=== PATIENT | female | born 1985 | race Caucasian/White ===

== ENCOUNTER 2023-05-07 07:38 | Emergency (ER) | payer OTHER, SELFPAY ==
--- NOTE | 2023-05-07 07:41 | XRR_ITS ---
PROCEDURE INFORMATION: Exam: XR Right Wrist Exam date and time: 05/07/2023 7:48 AM Age: 37 years old Clinical indication: Injury or trauma; Fall; Blunt trauma (contusions or hematomas); Wrist; Right; Additional info: R wrist injury TECHNIQUE: Imaging protocol: Radiologic exam of the right wrist. 3image(s) are provided. Views: 3 or more views. COMPARISON: No relevant prior studies available of the wrist. Right hand report of 2019. FINDINGS: Bones/joints: Osseous alignment is maintained. No displaced fracture or dislocation is appreciated. There is some interventional related screw change at the 1st digit proximal phalanx. There is some slight radiocarpal level narrowing. Carpal alignment appears maintained. Soft tissues: No radiopaque foreign body or subcutaneous emphysema is appreciated. XR/XR wrist RT min 3V* [id number] IMPRESSION: Osseous alignment is maintained. No fracture or dislocation is appreciated.
[2023-05-07 07:44] VITALS: BP 133/59; PULSE 80; RESP 16; TEMP 37.6; O2SAT 100; BMI 22.7
--- NOTE | 2023-05-07 07:53 | W.ED.EXTPRO ---
HPI - Extremity Problem General: Chief complaint: Extremity Injury, Upper Stated complaint: Right wrist injury Time Seen by Provider: 05/07/23 07:42 Source: patient Mode of arrival: ambulatory Limitations: no limitations History of Present Illness: 37-year-old female presents to the ER today for right wrist pain. 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 Patient reports since that time she has had significant pain with movement and also numbness and tingling in that hand. Patient denies any prior injury to that finger or hand. She has not taken anything for pain at this time. Review of Systems General: Reports: 10 or more systems reviewed and unremarkable except in HPI and below Physical Exam Const: COMMON NORMALS: no acute distress, average body habitus, patient oriented x3, no limitations, healthy appearing, alert and well nourished HENMT: COMMON NORMALS: normocephalic and atraumatic HEAD & SCALP: normocephalic and atraumatic Resp: COMMON NORMALS: normal respiratory effort and No retractions Cardio: COMMON NORMALS: regular rate, regular rhythm and No murmurs present (Cardio) RATE: regular rate RHYTHM: regular rhythm Extremity: NARRATIVE EXTREMITY EXAM: No obvious swelling or bruising noted to the right wrist. Patient has tenderness over the ulnar side of the wrist/fifth metacarpal. Patient has limited range of motion secondary to pain. No deformities noted. Neuro: COMMON NORMALS: patient oriented x3 SENSORIUM/ORIENTATION: Yes alert Psych: COMMON NORMALS: mental status grossly normal, Normal thought process present and cooperative THOUGHT PROCESS: Normal thought process present Skin: COMMON NORMALS: no rashes or lesions noted and no wounds GENERAL SKIN EXAM: no rashes or lesions noted Course ED course: Patient presents for right wrist pain after an injury at work this morning. 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 We will get imaging at this time. No obvious deformity noted on exam. Limited range of motion secondary to pain. Patient has not taken anything at this time for pain. Vital Signs: Vital signs: Vital Signs Temperature 99.6 F 05/07/23 07:44 Pulse Rate 80 05/07/23 07:44 Respiratory Rate 16 05/07/23 07:44 Blood Pressure 133/59 05/07/23 07:44 Pulse Oximetry 100 05/07/23 07:44 MDM - Extremity (Nontraumatic) Medical Decision Making Imaging does not indicate any acute fractures. Likely patient has a wrist contusion from hitting it on the bed rail. Patient was placed in a Velcro wrist splint. Discussed that this likely will be sore for the next several days. Recommend anti-inflammatory daily for the next 7 to 10 days. Wear the brace when at work to protect it. Apply ice 20 minutes on and 20 minutes off 2-3 times a day. If pain persist after 7 to 10 days follow-up with work comp provider or PCP. Return to the ER with any new or worsening symptoms. Patient was released to full duty just recommended she wear the brace. Patient verbalized understanding and was in agreement with the treatment plan. XR interpretation done by ED provider, pending radiology final review ED provider radiology interpretation(s): Negative for acute fracture. Critical Care Time Critical Care Time: Critical Care Time: No Discharge Plan Discharge Patient Disposition: Home Clinical Impression: Contusion of right wrist, initial encounter Condition: Stable Discharge Orders: Discharge ED (Routine); Ordered 05/07/23 Ordered By: Jenifer Gayle Discharge Diet: Usual diet Discharge Activity: Increase activity as tolerated Patient Instructions: Wrist Injury (ED), Opioid Safety, Pain Management Activity Restrictions/Additional Instructions: Wear wrist brace as placed in ER. Take ibuprofen or aleve x 7 days for pain and inflammation. Apply ice to reduce swelling and help with pain. Okay to return to work but recommend wearing the wrist brace. F/U with PCP or work comp provider in 7-10 days. 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
== END 2023-05-07 08:27 | disposition home or self-care (01) ==
PROVIDERS: Emergency Provider Physician Assistant
DX: S60.211A Contusion of right wrist, initial encounter (principal); W22.09XA Striking against other stationary object, initial encounter; Y93.F2 Activity, caregiving, lifting; Y99.0 Civilian activity done for income or pay
CPT/HCPCS: 73110; 99283

== ENCOUNTER 2023-12-01 14:42 | Emergency (ER) | payer OTHER, SELFPAY ==
[2023-12-01 14:47] VITALS: BP 118/72; PULSE 91; RESP 15; TEMP 37.3; O2SAT 100
--- NOTE | 2023-12-01 15:11 | ED_ITS ---
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 She has no radicular discomforts. No chest pain or abdominal pain. Pain is worse with movement. MD elicited complaint: back pain Onset (ago): hour(s) Timing: constant Severity: moderate Similar Symptoms Previously: No Quality: sharp Location: thoracic spine Radiation: none Exacerbating factors: movement and lifting Relieving factors: none Context: while lifting Associated symptoms: Reports no associated symptoms; Deny abdominal pain, difficulty walking, dysuria, hematuria or syncope Treatments prior to arrival: NSAIDS Work related injury: Yes Review of Systems Card: Denies: chest pain, lightheadedness, syncope or pre-syncope Resp: Denies: dyspnea GI: Denies: abdominal pain : Denies: flank pain, dysuria or hematuria Musc: Reports: back pain; Denies: neck pain, extremity pain, extremity swelling, joint pain or joint swelling Neuro: Denies: numbness in extremities, weakness in extremities, sensory changes or difficulty walking Physical Exam Const: COMMON NORMALS: no acute distress, average body habitus, patient oriented x3, no limitations, healthy appearing, alert and well nourished Chest: COMMONS NORMALS: normal inspection of the chest and normal palpation of entire chest wall Resp: COMMON NORMALS: normal respiratory effort and clear to auscultation bilaterally AUSCULTATION: clear to auscultation bilaterally Cardio: COMMON NORMALS: regular rate and regular rhythm RATE: regular rate RHYTHM: regular rhythm GI: COMMON NORMALS: Normal to inspection, nondistended, normoactive bowel sounds present, Soft to palpation, non-tender, No hepatosplenomegaly present and no masses PALPATION: Yes Soft to palpation and Yes No hepatosplenomegaly present : COMMON NORMALS: Yes no CVA tenderness BLADDER/KIDNEY EXAM: Yes no CVA tenderness Back/Pelvis: COMMON NORMALS: no CVA tenderness and thoracic and lumbar spine normal to inspection THORACIC SPINE/UPPER BACK: Yes ROM limited, Yes pain with ROM, Yes thoracic spinal tenderness, Yes paraspinal muscle tenderness and No paraspinal muscle spasm LUMBAR SPINE/LOWER BACK: Yes normal to inspection, Yes lumbar ROM normal, No lumbar spinal tenderness, No paraspinal muscle tenderness and No paraspinal muscle spasm PELVIS: Yes buttocks normal and No sciatic notch tenderness SACROILIAC JOINTS: Yes SI joints normal SACRUM: no tenderness COCCYX: no tenderness Extremity: COMMON NORMALS: normal to inspection and full ROM GENERAL: Yes normal exam except as noted Neuro: COMMON NORMALS: patient oriented x3, moves all extremities, no focal motor deficits and no sensory deficits noted SENSORIUM/ORIENTATION: Yes alert Course Vital Signs: Vital signs: Vital Signs Temperature 99.2 F 12/01/23 14:47 Pulse Rate 91 12/01/23 14:47 Respiratory Rate 15 12/01/23 14:47 Blood Pressure 118/72 12/01/23 14:47 Pulse Oximetry 100 12/01/23 14:47 Oxygen Delivery Me thod Room Air 12/01/23 14:47 MDM - Back Pain/Injury Medical Decision Making XR negative. She feels better after IM Toradol and Dexamethasone. She will be allowed discharge. Will place her on steroids and muscle relaxers at home. She can continue OTC NSAIDs. Recommend follow-up as directed by her [employer] Medical Records I reviewed the patient's medical records. All radiology interpretation(s) finalized by discharge Discharge Plan Discharge Patient Disposition: Home Clinical Impression: Strain of thoracic back region Condition: Stable Prescriptions: New methocarbamol 500 mg tablet 1,000 mg PO Q8H Qty: 30 0RF methylprednisolone [Medrol ([place])] 4 mg tablets,dose pack See Rx Instructions .ROUTE .COMPLEX Qty: 21 0RF Rx Instructions: orally per package directions Discharge Orders: Discharge ED (Routine); Ordered 12/01/23 Ordered By: Carol Oakley Stand Alone Forms: Work/School Release Coding Level of Care Code ED Ladle Watcher for Collette Quick
--- NOTE | 2023-12-01 15:15 | XR_ITS ---
WS: [id number] Exam: XR thoracic spine 3V* [id number] Date/Time of Exam: 12/01/2023 3:15 PM Reason For Exam: injury Findings: In the AP projection, the thoracic spine is straight. In the lateral projection, the thoracic curve is well maintained. The intervertebral disc spaces are intact. No fractures or anomalies of the tho racic spine are noted. Slightly increased kyphosis. IMPRESSION: No acute fracture or malalignment..
[2023-12-01] MEDS: ketorolac 30 mg/mL INJ IM (15:20)
[2023-12-01] MEDS: dexamethasone 10 mg/mL INJ 6 MG IM (15:20)
[2023-12-01 16:49] VITALS: BP 125/71; PULSE 78; RESP 16; O2SAT 98
== END 2023-12-01 16:50 | disposition home or self-care (01) ==
PROVIDERS: Emergency Provider Physician Assistant
DX: S29.012A Strain of muscle and tendon of back wall of thorax, initial encounter (principal); X50.0XXA Overexertion from strenuous movement or load, initial encounter; Y93.F2 Activity, caregiving, lifting; Y92.129 Unspecified place in nursing home as the place of occurrence of the external cause; Y99.0 Civilian activity done for income or pay
CPT/HCPCS: 72072; 96372; 99284; J1100; J1885

== ENCOUNTER 2024-03-09 03:38 | Emergency (ER) | payer BC, MEDICAID, SELFPAY ==
[2024-03-09 03:49] VITALS: BP 123/60; PULSE 96; RESP 16; TEMP 36.9; O2SAT 100; BMI 23.5
[2024-03-09 04:00] VITALS: BP 100/68; PULSE 91; RESP 16; O2SAT 100
[2024-03-09] MEDS: ondansetron 4 MG Tablet PO (04:34)
[2024-03-09] MEDS: HYDROmorphone 1 mg/mL INJ 1 mL IM (04:35)
[2024-03-09] MEDS: mupirocin oint 22 gm 1 APPLIC TOPICAL (04:37)
--- NOTE | 2024-03-09 04:44 | PC.NURSE ---
Wrapped right hand with telfa and gauze after applying antibacterial ointment
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
== END 2024-03-09 04:45 | disposition home or self-care (01) ==
PROVIDERS: Emergency Provider Emergency Medicine
DX: T23.231A Burn of second degree of multiple right fingers (nail), not including thumb, initial encounter (principal); T23.151A Burn of first degree of right palm, initial encounter; X08.8XXA Exposure to other specified smoke, fire and flames, initial encounter
CPT/HCPCS: 96372; 99284; J1170; Q0162

== ENCOUNTER 2024-04-18 04:12 | Inpatient (IN) | payer BC, MEDICAID, SELFPAY ==
[2024-04-18] VITALS (138 sets, daily range): BP systolic 89–178; BP diastolic 42–104; PULSE 56–150; RESP 9–33; TEMP 37.1–37.2; O2SAT 92–100; BMI 23.5; BMI 23.4
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
[2024-04-18] MEDS: ketamine 100 mg/mL Inj 5 mL IM (04:38)
--- NOTE | 2024-04-18 04:42 | PC.NURSE ---
96 Hour Involuntary Hold Patient Rights have been read to the patient and a copy of the same has been given to her. Insole Cementer Wayne Gayle was present at bedside at the time of presentation of Rights.
--- NOTE | 2024-04-18 04:48 | PC.NURSE ---
Pt brought in by [facility]. Pt was combative with EMS during transport, and threw urine on EMS. Pt was picked up for SI, she admits to attempting to slit her wrist today. Upon arrival to the ED pt was uncooperative, spitting, throwing her drink, yelling, and threatening nursing staff. Pt was given ketamine and placed in 4 point restraints per instruction of Dr Way after attempts to keep patient calm and cooperative were exhausted at 0430. Dr Way did perform [id number] after patient was placed in restraints. Pt placed on bedside telemetry and has PSA within sight.
[2024-04-18 04:54] LABS: Basophils # 0.1 10^3/uL (0.0-0.1); Basophils % 0.7 %; Eosinophils # 0.1 10^3/uL (0.0-0.8); Eosinophils % 1.6 %; Hematocrit 26.1 % (36-47); Lymphocytes # 2.6 10^3/uL (0.8-4.8); Mean Corpuscular HGB Conc 24.5 g/dL (30-55); Mean Corpuscular Hemoglobin 15.6 pg (27-33); Mean Corpuscular Volume 63.5 fl (85-98); Mean Platelet Volume 8.7 fL (7.4-10.4); Monocytes # 0.7 10^3/uL (0.2-0.9); Monocytes % 8.6 %; Neutrophils % 56.9 %; Nucleated Red Blood Cells % 0 %; Platelet Count 416 10^3/cmm (157-399); Red Blood Count 4.11 10^6/uL (3.85-5.65); White Blood Count 8.26 10^3/uL (3.29-11.43)
--- NOTE | 2024-04-18 05:13 | PC.NURSE ---
[id number] was performed by Dr Way within 1 hour of placing patient in [id number].
[2024-04-18 05:14] LABS: Alanine Aminotransferase 9 U/L (0-33); Albumin Level 4.3 g/dL (3.5-5.2); Alkaline Phosphatase 66 U/L (35-105); Anion Gap 17.7 (5-19); Aspartate Amino Transferase 18 U/L (0-32); Blood Urea Nitrogen 5 mg/dL (6-20); Calcium 7.8 mg/dL (8.5-10.5); Carbon Dioxide 23 mmol/L (22-29); Chloride 108 mmol/L (98-107); Creatinine Clr Calc Pharmacy 130.0596; Globulin 2.7 g/dL (1.3-4.6); Glomerular Filtration Rate 112.5 mL/min (90-130); Glucose 141 mg/dL (65-115); Osmolality Calculated 300 mOsm/kg (285-295); Potassium 3.7 mmol/L (3.5-5.1); Salicylate 1.3 mg/dL (3-10); Sodium 145 mmol/L (136-145); Total Bilirubin 0.2 mg/dL (0.15-1.2)
[2024-04-18 05:25] LABS: Acetaminophen < 5.0 ug/mL (10-30)
[2024-04-18 05:26] LABS: Alcohol Level 302 mg/dL (0-10)
--- NOTE | 2024-04-18 05:33 | PC.NURSE ---
Patient requested to use restroom to urinate. Patient was ambulated to restroom with charge nurse Anitha and physical security manager. Patient then requested to not be placed back into restraints. Patient was helped back into regular bed, acting calm and cooperative at this time.
[2024-04-18 05:35] LABS: Charge for UA Resulting for Rev
[2024-04-18 05:38] LABS: HCG Qualitative Urine. Negative (Negative)
[2024-04-18 05:42] LABS: Bilirubin Urine Negative (Negative); Blood Urine Negative (Negative); Glucose Urine UA Negative (Normal); Ketones Urine Negative (Negative); Leukocyte Esterase Urine Negative (Negative); Nitrate Urine Negative (Negative); Protein Urine Negative (Negative); Specific Gravity, Urine 1.003 (1.005-1.030); Urine Appearance Clear (CLEAR); Urine Color Yellow (Yellow); Urobilinogen Urine 0.2 mg/dL (Negative); pH Urine 6.5 (5-7)
[2024-04-18 05:49] LABS: Amphetamines Screen Urine Negative (Negative); Barbiturates Screen Urine Negative (Negative); Benzodiazepines Screen Urine Negative (Negative); Cocaine Screen Urine Negative (Negative); Opiate Screen Urine Negative (Negative); PCP Screen Urine Negative (Negative); THC Screen Urine Negative (Negative)
[2024-04-18 06:05] LABS: Ferritin 8 ng/mL (15-150); Iron 7 ug/dL (37-145); Lactic Sepsis W/Reflex 2.9 mmol/L (0.5-2.2)
--- NOTE | 2024-04-18 06:12 | P.HP_ITS ---
Providers/Chief Complaint 2 Admitting Physician: Jose Samaniego MD Chief Complaint: MHE History of Present Illness Arlyn Waller is a 38 year old female with a past medical history of alcohol abuse, major depressive disorder, history of suicidal ideation with history of suicide attempt, status postcholecystectomy, status post tubal ligation, who presents to [facility] for suicidal ideation. According to ER provider, patient was brought in for suicidal ideation, she has a 96-hour hold, in the emergency room she was very volatile, hitting and kicking people, yelling profanities, was given ketamine and put in 4 point restraints. Hemoglobin is 6.4, blood alcohol level 302, hospitalist team was called for admission for acute anemia, hemodynamics are stable, no active bloody black stools. Currently patient is out of restraints, she is alert to person, to place, not to time, she follows all commands, but easily become agitated. During my evaluation she is yelling profanities, easily agitated, she had a cup of Coke beside her which she was sipping from, I was able to have her give it to me during my questioning, to keep her n.p.o. I asked her how much alcohol she drinks she tells me too much, but is not able to tell me an exact amount or her last drink. She denies any bloody or black stools. Denies a history of anemia. Denies a family history of anemia or bleeding disorders. She does report heavy menstrual periods, her last menstrual period was a few days ago, denies being . We had a detailed discussion of what acute anemia was, or concerns for a possible slow GI bleed, she starts crying, and wants her Coke back. We discussed that we have to keep her n.p.o., for possible scoping, she tells me that she is very thirsty, she denies any hematemesis or any coffee-ground emesis. She does feel nauseous at home, no bloody vomit Review of Systems 2 Const: Reports: fatigue and malaise GI: Reports: abdominal pain and heartburn; Denies: coffee ground emesis, hematochezia or melena Medications/Allergies Home Medications Medication Instructions Recorded Confirmed Last Taken Type methocarbamol 500 mg tablet 1,000 mg (2 x 500 mg) PO Q8H #30 12/01/23 Unknown Rx tabs methylprednisolone 4 mg tablets in See Rx Instructions PO .COMPLEX 12/01/23 Unknown Rx a dose pack (Medrol ([place])) #21 ea hydrocodone 5 mg-acetaminophen 325 1 tab PO Q8H PRN pain #7 tabs 03/09/24 Unknown Rx mg tablet mupirocin 2 % topical ointment 1 applic topical BID #50 grams 03/09/24 Unknown Rx Allergies Allergy/AdvReac Type Severity Reaction Status Date / Time morphine Allergy ALGY-Difficulty Verified 04/18/24 04:17 Breathing PFSH Acute 2 PFSH: Medical History (Updated 04/18/24 @ 06:23 by Jose Samaniego MD) History of alcoholism Surgical History (Updated 04/18/24 @ 06:21 by Jose Samaniego MD) History of tubal ligation History of cholecystectomy Social History (Updated 04/18/24 @ 06:21 by Jose Samaniego MD) Smoking and tobacco/nicotine status: never used tobacco/nicotine Alcohol intake: current Substance/Drug Use: never Female Reproductive History: Date of last menstrual period: 04/17/24 Vitals/I&O/Wt Last Vital Signs Temp 98.8 F 04/18/24 04:12 Pulse 101 H 04/18/24 05:40 Resp 22 H 04/18/24 05:40 BP 142/77 04/18/24 05:40 Pulse Ox 100 04/18/24 05:40 Weight last 48 hrs Weight 68.039 kg Physical Exam 2 Const: COMMON NORMALS: no acute distress ORIENTATION/CONSCIOUSNESS: Yes awake, Yes oriented to person and Yes oriented to place HENMT: COMMON NORMALS: normocephalic HEAD & SCALP: normocephalic Eye: OTHER: Conjunctival pallor Neck/C-Spine: COMMON NORMALS: no JVD Resp: COMMON NORMALS: normal respiratory effort, No retractions, No use of accessory muscles and clear to auscultation bilaterally AUSCULTATION: clear to auscultation bilaterally Cardio: COMMON NORMALS: regular rate, regular rhythm, S1 normal heart sound present and S2 normal heart sound present RATE: regular rate RHYTHM: r egular rhythm HEART SOUNDS: S1 normal heart sound present and S2 normal heart sound present GI: COMMON NORMALS: Normal to inspection, nondistended, normoactive bowel sounds present and Soft to palpation OTHER: Nonspecific tenderness in all 4 quadrants Extremity: COMMON NORMALS: no calf tenderness and no pedal edema Neuro: COMMON NORMALS: patient oriented x3, CN's II-XII intact bilaterally, moves all extremities and no focal motor deficits Psych: OTHER: Easily agitated, crying at times, yelling profanities at times, but follows commands Data 04/18/24 04:50 04/18/24 04:50 A&P Assessment and plan (1) Iron deficiency anemia: (2) Acute anemia: (3) Alcoholism: (4) Suicidal ideation: (5) Alcohol intoxication: Qualifiers: Complication of substance-induced condition: uncomplicated Qualified Code(s): F10.920 - Alcohol use, unspecified with intoxication, uncomplicated Plan Suicidal ideation -Has a 96-hour hold -Going to ICU -Once medically stable, can go to neuropsychiatric unit Acute anemia -Has evidence of iron deficiency anemia ferritin levels 8, iron level 7 ? Does report at times heavy menstrual periods, reports irregular periods, but is not able to give more information, as she becomes easily agitated, easily distracted ? Denies any bloody black stools, no hematemesis, denies history of esophageal varices ? Does have a history of alcoholism ? Plan ? CT scan abdomen pelvis ? Transfuse 1 unit PRBC -will start IV venofer -protonix -carafate -general surgery consulted for EGD and colonoscopy -keep NPO -full code -scd for dvt prophylaxis, lovenox relatively contraindicated Alcohol intoxication -[facility] protocol -will place on scheduled librium 50mg q6h -banana bag Attestations 2 Medical Necessity Statement*: Patient requires hospitalization, inpatient, greater than 2 midnight alcohol intoxication, iron deficiency anemia, acute anemia, suicidal ideation, 96-hour hold Diagnoses Iron deficiency anemia D50.9 Acute anemia D64.9 Alcoholism F10.20 Suicidal ideation R45.851 Alcohol intoxication F10.920 Complication of substance-induced condition: uncomplicated
--- NOTE | 2024-04-18 06:15 | PC.NURSE ---
Fecal occult test performed, Dr Way notified of negative results.
--- NOTE | 2024-04-18 06:15 | PC.NURSE ---
Patient at this time calm and cooperative with treatment plan, allowing nursing staff to place IV and perform fecal occult test.
--- NOTE | 2024-04-18 06:19 | CTR_ITS ---
PROCEDURE INFORMATION: Exam: CT Abdomen And Pelvis With Contrast Exam date and time: 04/18/2024 8:15 PM Age: 38 years old Clinical indication: Abdominal pain; Additional info: Acute anemia, fe defeciency, n, abdominal pain TECHNIQUE: Imaging protocol: Computed tomography of the abdomen and pelvis with contrast. Radiation optimization: All CT scans at this facility use at least one of these dose optimization techniques: automated exposure control; mA and/or kV adjustment per patient size (includes targeted exams where dose is matched to clinical indication); or iterative reconstruction. Contrast material: OMNI 350; Contrast volume: 100 ml; Contrast route: INTRAVENOUS (IV); COMPARISON: CR XR thoracic spine 3V* [id number] 12/01/2023 3:52 PM RADIATION DOSE METRICS: Total DLP (mGy-cm): 676 FINDINGS: Liver: Normal. No mass. Gallbladder and biliary ducts: Status post cholecystectomy. Pancreas: Normal. No ductal dilation. Spleen: Normal. No splenomegaly. Adrenal glands: Normal. No mass. Kidneys and ureters: Normal. No hydronephrosis. Stomach and bowel: Moderate rectal stool burden. No evidence of bowel obstruction. Appendix: No evidence of appendicitis. Intraperitoneal space: Small volume free fluid in the pelvis. Vasculature: Unremarkable. No abdominal aortic aneurysm. Lymph nodes: Unremarkable. No enlarged lymph nodes. Urinary bladder: Unremarkable as visualized. Reproductive: Physiologic appearance of the uterus. 2 cm adnexal cyst (coronal series 5, image 25). 2.2 cm right adnexal cyst (coronal series 5, image 28). Bones/joints: Unremarkable. No acute fracture. Soft tissues: Unremarkable. CT/CT abdomen pelvis w con* [id number] IMPRESSION: Fluid attenuating cysts within the bilateral adnexa. Small volume free fluid in the pelvis measuring simple fluid density. Findings can be further evaluated with pelvic ultrasound if clinically indicated. No evidence of hemorrhage within the abdomen or pelvis.
--- NOTE | 2024-04-18 06:19 | PC.NURSE ---
Consent for blood signed by this nurse and SUZANNA Valdez, as well as witnessed by Housesupervisor SUZANNA Rosas and signed by ordering provider Dr aWy.
[2024-04-18] MEDS: pantoprazole 40 mg SDV IVP ×2 (06:26→17:10)
--- NOTE | 2024-04-18 06:45 | PC.NURSE ---
Attempted to call report to ICU at 0645.
--- NOTE | 2024-04-18 06:47 | PC.NURSE ---
PSA notified this nurse that pt was drinking water out of sink. Pt has been informed several times that she is NPO because she is due to have a scope this morning. Pt stated, I don't care, I am going to drink out of the sink because you won't give me my fucking phone, and you keep asking me to do stuff for you and you won't do stuff for me.
--- NOTE | 2024-04-18 07:04 | PC.NURSE ---
ASSUMED CARE FROM BRANDING MACHINE TENDER NURSE SUZANNA BANDA AND SUZANNA MONROE.
--- NOTE | 2024-04-18 07:27 | PC.PHAR ---
Pt is unable to verify medications. External med list does not show any maintenance medications, just meds from 2 previous ED visits. Fill dates and days supply noted.
[2024-04-18 07:40] LABS: Reflex Lactate Order REFLEX LACTIC ORDERD
[2024-04-18] MEDS: OLANZapine 10 mg VIAL IM (07:51)
--- NOTE | 2024-04-18 07:52 | PC.NURSE ---
UPON WALKING INTO ED RM 9, PT FOUND RESTING IN BED WITH EYES CLOSED AND EVEN RESPIRATIONS. PT WAS WOKEN UP PT VITAL SIGNS WERE OBTAINED. PT THEN INFORMED STAFF THAT SHE TOOK HER IV OUT OF HER R AC STATING I DON'T NEED IT. THIS NURSE EXPLAINED THAT SHE HAS ABNORMAL LABS AND HAS A BLOOD TRANSFUSION ORDERED. PT VERBALIZED UNDERSTANDING AND AGREED TO GET ANOTHER IV. 20G IV PLACED IN L FOREARM. UPON TRANSFER TO ICU WITH SECURITY, THIS NURSE, AND TECH, PT BECAME AGITATED AND MADE MULTIPLE ATTEMPTS TO RIP IV OUT. PT ARMS WERE RESTRAINED BY SECURITY UNTIL PT ARRIVED IN ICU. PT YELLING I DON'T HAVE TO GO TO THE [facility] ICU. PT WAS INFORMED THAT SHE IS ON A 96 HR HOLD AND HAS TO BE IN ICU D/T MEDICAL CONDITION. PT CONTINUALLY CUSSING AT STAFF AND THREATENING STAFF STATING I WANT TO KILL ALL OF YOU AND ASKING FOR HER BELONGINGS.
--- NOTE | 2024-04-18 08:00 | PC.NURSE ---
Patient Belongings Patient belongings include shirt, shorts, underwear, flip flops, purse, cell phone present with patient upon arrival to ICU. Belongings placed in ICU locker #9 and locked with lock #9.
--- NOTE | 2024-04-18 08:15 | PC.NURSE ---
Transfer Upon arrival to ICU patient verbally aggressive, yelling at staff, I don't have to be here, you can't put me here . Once patient in ICU room & asked to transfer from ER stretcher to ICU bed she started yelling aggressively, I am not fucking getting in this bed, you cannot make me . Patient transferred to ICU bed by herself. Once in bed patient started yelling, I do not need this IV, you cannot put another IV in me, I don't need that. after which statement patient ripped IV out and threw across the room. Following patient removing IV, she started thrashing arms and legs around trying to get out of the bed, attempting to harm and staff in the process. Beka, information systems security developer & this nurse attempted to verbally deescalate patient. At approximately 0745 patient placed in soft wrist/ankle violent 4 point restraints, per order. Patient continues to thrash arms & legs in bed aggressively yelling at the staff. At approximately 0751 IM Zyprexa given 10mg ONCE in the right deltoid, patient continues to aggressively yell at the staff, you're not giving me another shot, I am not going to take another shot . At approximately 0805 all restraints removed, pulses palpable in bilateral wrists and dorsalis pedis. Patient resting calmly with 1:1 sitter present at bedside.
[2024-04-18 08:21] LABS: INR 1.05 (0.8-1.2)
[2024-04-18 08:22] LABS: Partial Thromboplastin Time 29.6 SECONDS (23.9-36.7)
[2024-04-18 08:33] LABS: Lipase 56 U/L (13-60); Thyroid Stimulating Hormone 0.81 uIU/mL (0.27-4.20); Transferrin 440 mg/dL (200-360)
[2024-04-18 08:44] LABS: Hepatitis A Antibody IgM Non-Reactive (Nonreactive); Hepatitis B Core IgM Non-Reactive (Nonreactive); Hepatitis B Surface Antigen Non-Reactive (Nonreactive); Hepatitis C Virus Antibody Non-Reactive (Nonreactive)
[2024-04-18 08:45] LABS: HIV 1 & 2 Antibody Non-Reactive (Non-Reactiv); HIV 1 & 2 Antigen Non-Reactive (Non-Reactiv)
--- NOTE | 2024-04-18 09:01 | W.PM.EVENTAC ---
Event Note Event Note: Patient was very aggressive with the staff received intramuscular Zyprexa We have removed her restraints after Zyprexa Patient is waiting for blood transfusion however she has ripped her IV line Dr. Mata consulted for endoscopy Currently patient is on room air with relatively hypotension Monitor in ICU Get another IV, start blood transfusion Continue Protonix and sucralfate Alcohol-related gastropathy? Continue CIWA protocol we may need Precedex today
[2024-04-18] MEDS: folic acid 1 MG, multivitamin inj 10 ML, thiamine 100 MG in sodium chloride 0.9% 1,000 ML 252.8 MG IV (09:35)
[2024-04-18] MEDS: iron sucrose 200 MG in sodium chloride 0.9% (100 ml) 100 ML 220 MG IV (09:36)
[2024-04-18] MEDS: dextrose 5%-sod chloride 0.9% 1,000 ML 75 ML IV (09:46)
[2024-04-18] MEDS: thiamine 100 mg Tablet PO (10:07)
--- NOTE | 2024-04-18 12:18 | P.NPUCON_ITS ---
Providers/Reason for Consult 2 Consulting Physican/Specialty*: Dave Cartagena MD/Psychiatry Reason for Consult*: agitation/suicidal ideation Attending Physician: Tab Canada MD Psych Consult HPI History of Present Illness Arlyn Waller is a 38 year old female with a history of borderline personality traits, major depressive disorder and alcohol abuse who presented to the emergency department having been brought in by EMS for suicidal ideation. The patient had a blood alcohol level of 302 and a hemoglobin of 6.4 and was admitted to the intensive care unit involuntarily. She had been aggressive and extremely volatile while in the emergency department with hitting and kicking people noted and verbal abuse by the patient towards the staff that was attempting to help her. She had received 100 mg of IV ketamine and required restraints. The patient was brought to the ICU and again had been placed in restraints and appeared out of restraints in the ICU. She was unable to provide any information as she was difficult to arouse as she had received 10 mg of olanzapine this morning due to agitation. Previous psychiatric records from an inpatient hospitalization were reviewed. She had indicated to staff that she had a significant problem with alcohol but was not clear on how much alcohol she had taken on a daily basis. Previous records had indicated that the patient had a significant history of alcohol use in 2019 at that time having consumed half a gallon of whiskey on a daily basis. She had made a superficial cut on right wrist. Inpatient psychiatric history: Patient has at least 1 previous inpatient hospitalization in May 2019 at the neuropsychiatric unit. She has a history of suicide attempts along with reported history of self-injurious behavior having attempted to eat the contents of an instant cold pack with suicidal intent reported 5 years ago. Outpatient psychiatric history: Limited at this time although she had reported a history of symptoms suggestive of bipolar 2 disorder in the past. Substance abuse history: She had an history of reported alcohol abuse with a history of withdrawal symptoms. She was unable to clarify whether she had been in many substance abuse treatment in the past either inpatient or outpatient. There had been reported history of alcohol related withdrawal symptoms. Medical history: Iron deficiency anemia, acute anemia Surgical history reported history of , cholecystectomy, tubal ligation Current medications: As stated in primary hospitalist evaluation. Allergies: Morphine Legal history: Unknown Family psychiatric history: Unknown Social history: Unclear, she had previously reported to having been . Records describe her as being currently single. 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 Meds Home Medications and Allergies Home Medications Medication Instructions Recorded Confirmed Last Taken Type methocarbamol 500 mg tablet 1,000 mg (2 x 500 mg) PO Q8H #30 12/01/23 04/18/24 Unknown Rx tabs methylprednisolone 4 mg tablets in See Rx Instructions PO .COMPLEX 12/01/23 04/18/24 Unknown Rx a dose pack (Medrol ([place])) #21 ea hydrocodone 5 mg-acetaminophen 325 1 tab PO Q8H PRN pain #7 tabs 03/09/24 04/18/24 Unknown Rx mg tablet mupirocin 2 % topical ointment 1 applic topical BID #50 grams 03/09/24 04/18/24 Unknown Rx Allergies Allergy/AdvReac Type Severity Reaction Status Date / Time morphine Allergy ALGY-Difficulty Verified 04/18/24 04:17 Breathing Current Medications Current Medications Generic Name Dose Route Start Last Admin Trade Name Freq PRN Reason Stop Dose Admin Chlordiazepoxide 50 mg 04/18/24 07:42 04/18/24 09:35 Chlordiazepoxide 25 Mg Capsule PO Not Given Q6H COSMO Folic Acid 1 mg 04/18/24 09:00 04/18/24 09:35 Folic Acid 1 Mg Tablet PO Not Given DAILY COSMO Dextrose/Sodium Chloride 1,000 mls @ 75 mls/hr 04/18/24 07:42 04/18/24 09:46 Dextrose 5%-Sod Chloride 0.9% IV 75 mls/hr .[id number] COSMO Administration Iron Sucrose 200 mg/ Sodium 110 mls @ 220 mls/hr 04/18/24 07:42 04/18/24 10:06 Chloride IV 04/22/24 08:11 Infused Q24H COSMO Infusion Multivitamins Therapeutic 1 tab 04/18/24 09:00 04/18/24 09:35 Multivitamin Therapeutic Tablet PO Not Given DAILY COSMO Sucralfate 1 gm 04/18/24 07:42 04/18/24 09:35 Sucralfate 1 Gm/10 Ml Oral Liq Udc PO Not Given Q6H COSMO Thiamine Mononitrate 100 mg 04/18/24 09:00 04/18/24 10:07 Thiamine 100 Mg Tablet PO 100 mg DAILY COSMO Administration PFSH NPU 2 PFSH: Medical History (Updated 04/18/24 @ 12:53 by Dave Cartagena MD) History of alcoholism Surgical History (Updated 04/18/24 @ 06:21 by Jose Samaniego MD) History of tubal ligation History of cholecystectomy Social History (Updated 04/18/24 @ 06:21 by Jose Samaniego MD) Smoking and tobacco/nicotine status: never used tobacco/nicotine Alcohol intake: current Substance/Drug Use: never Mental Status Exam 2 MSE Comments: Patient was lying in bed and was unarousable. Her speech at this time consisted of mumbling with limited productive speech. Her gait was not tested. There was no clear evidence of any abnormal involuntary motor movements tics or tremors appreciated. Her mood was not endorsed. Her affect appeared dysphoric. Her thought process was difficult to assess as she was essentially nonverbal. Her thought content was unclear at this time as she did not endorse anything substantial given her certain state. She did not appear to be responding to internal stimuli. There was no clear evidence of delusional thinking. Her insight and judgment are impaired. She was not alert at this time and orientation was not tested. Vitals/I&O/Wt Last Vital Signs Temp 98.8 F 04/18/24 04:12 Pulse 74 04/18/24 08:54 Resp 10 L 04/18/24 08:54 BP 89/47 04/18/24 08:54 Pulse Ox 98 04/18/24 09:32 O2 Del Method Room Air 04/18/24 09:32 04/17/24 04/18/24 04/18/24 22:59 06:59 14:59 Intake Total 110 / 110 Balance 110 / 110 Weight last 48 hrs Weight 68 kg Weight 68.039 kg Data NPU 04/18/24 04:50 04/18/24 04:50 A&P Assessment and plan (1) Alcohol intoxication: Qualifiers: Complication of substance-induced condition: uncomplicated Qualified Code(s): F10.920 - Alcohol use, unspecified with intoxication, uncomplicated (2) Suicidal ideation: (3) Depression, unspecified: Plan 38-year-old female with alcohol dependence currently in the ICU on an involuntary hold with significant agitation and admitted with depressed mood. We will continue to follow as the patient is a limited historian at this time. #1.? Engage patient in individual milieu and group therapy. #2?? Recommend sober living treatment at the highest level of care to which the patient is willing to commit #3??? CIWA for alcohol withdrawal-pHenobarb, librium, continue zyprexa SL for agitation if possible. Patient to remain on ICU with continued evaluation of anemia...possible esophageal varices, etc.... #4?? TO-15 minute checks #5?? Will attempt to gather collateral information, will follow in MCU/Medical floor. Attestations NPU 2 Medical Necessity Statement*: Continue medical treatment/will accept transfer to psychiatry once stabilized medically Coding Level of Care Code Acute Code for Chg Fwd Diagnoses Alcohol intoxication F10.920 Complication of substance-induced condition: uncomplicated Suicidal ideation R45.851 Depression, unspecified F32.A
[2024-04-18] MEDS: chlordiazePOXIDE 25 mg Capsule 50 MG PO ×2 (14:30→19:57)
[2024-04-18] MEDS: sucralfate 1 gm/10 mL Oral Liq UDC PO ×2 (14:31→20:05)
--- NOTE | 2024-04-18 15:38 | P.CONIM_ITS ---
Providers/Reason For Consult 2 Consulting Physician/Specialty*: Dr. Kamaljit Mata, DO/General Surgery Reason for Consult*: Iron deficiency anemia Attending Physician: Tab Canada MD History of Present Illness History of Present Illness Arlyn Waller is a 38 year old female who presented to the hospital intoxicated with suicidal ideations. She currently has very flat affect and despite asking multiple times will not answer many questions. HPI and review of systems are limited secondary to this. She has been on a 96-hour hold due to suicidal ideations. Workup showed that she had iron deficiency anemia. She reported in the ER that she has heavy menstruation but has not seen any bloody or black stools. She denies any abdominal pain. She reports she has never had a colonoscopy. Review of Systems 2 General: Reports: 10 or more systems reviewed and unremarkable except in HPI and below Medications/Allergies Home Medications Medication Instructions Recorded Confirmed Last Taken Type methocarbamol 500 mg tablet 1,000 mg (2 x 500 mg) PO Q8H #30 12/01/23 04/18/24 Unknown Rx tabs methylprednisolone 4 mg tablets in See Rx Instructions PO .COMPLEX 12/01/23 04/18/24 Unknown Rx a dose pack (Medrol ([place])) #21 ea hydrocodone 5 mg-acetaminophen 325 1 tab PO Q8H PRN pain #7 tabs 03/09/24 04/18/24 Unknown Rx mg tablet mupirocin 2 % topical ointment 1 applic topical BID #50 grams 03/09/24 04/18/24 Unknown Rx Allergies Allergy/AdvReac Type Severity Reaction Status Date / Time morphine Allergy ALGY-Difficulty Verified 04/18/24 04:17 Breathing Current Medications Generic Name Dose Route Start Last Admin Trade Name Freq PRN Reason Stop Dose Admin Chlordiazepoxide 50 mg 04/18/24 07:42 04/18/24 14:30 Chlordiazepoxide 25 Mg Capsule PO 50 mg Q6H COSMO Administration Folic Acid 1 mg 04/18/24 09:00 04/18/24 09:35 Folic Acid 1 Mg Tablet PO Not Given DAILY COSMO Dextrose/Sodium Chloride 1,000 mls @ 75 mls/hr 04/18/24 07:42 04/18/24 09:46 Dextrose 5%-Sod Chloride 0.9% IV 75 mls/hr .[id number] COSMO Administration Iron Sucrose 200 mg/ Sodium 110 mls @ 220 mls/hr 04/18/24 07:42 04/18/24 10:06 Chloride IV 04/22/24 08:11 Infused Q24H COSMO Infusion Multivitamins Therapeutic 1 tab 04/18/24 09:00 04/18/24 09:35 Multivitamin Therapeutic Tablet PO Not Given DAILY COSMO Sucralfate 1 gm 04/18/24 07:42 04/18/24 14:31 Sucralfate 1 Gm/10 Ml Oral Liq Udc PO 1 gm Q6H COSMO Administration Thiamine Mononitrate 100 mg 04/18/24 09:00 04/18/24 10:07 Thiamine 100 Mg Tablet PO 100 mg DAILY COSMO Administration PFSH Acute 2 PFSH: Medical History History of alcoholism Surgical History History of tubal ligation History of cholecystectomy Social History Smoking and tobacco/nicotine status: never used tobacco/nicotine Alcohol intake: current Substance/Drug Use: never Female Reproductive History: Date of last menstrual period: 04/17/24 Vitals/I&O/Wt Last Vital Signs Temp 98.8 F 04/18/24 04:12 Pulse 67 04/18/24 14:21 Resp 14 04/18/24 13:10 BP 130/52 04/18/24 13:10 Pulse Ox 99 04/18/24 13:10 O2 Del Method Room Air 04/18/24 09:32 04/18/24 04/18/24 04/18/24 06:59 14:59 22:59 Intake Total 1121.2 / 1121.2 Balance 1121.2 / 1121.2 Weight last 48 hrs Weight 149 lb 14.629 oz Weight 150 lb Physical Exam 2 Narrative: General : Patient is well developed , no acute distress, oriented x3 Head : Normal cephalic, a-traumatic. Ears : Pinnae and external canal are normal. Hearing is normal. Eyes : PERRLA, Sclera and injection are normal. No conjunctival discharge. Nose : Mucous membranes are without erythema. Throat : buccal mucosa is normal, gums are without significant recession or hypertrophy. Lungs : Equal chest rise bilaterally, no use of accessory muscles, trachea is midline. Cor : Rate and rhythm are normal. Abdomen : Soft, ND, NT, no g/r/m Extremities : No edema, no cyanosis or clubbing, dorsalis pedis pulses are present bilaterally, non-tender to palpation of calves. Upper extremities are normal bilaterally. Back : non-tender to palpation, no CVA tenderness. Neuro : CN II - XII intact, Upper and lower extremities have equal and full strength Data 04/18/24 04:50 04/18/24 04:50 A&P Assessment and plan (1) Iron deficiency anemia: Plan Bowel prep N.p.o. after 8 AM EGD and colonoscopy The risks and benefits of the procedure, including bleeding, infection, intestinal perforation requiring surgery, missed lesion were explained to the patient. The patient is understanding of the risks and wishes to proceed. Medical management per hospitalist Coding Level of Care Code 02757 Diagnoses Iron deficiency anemia D50.9
[2024-04-18] MEDS: bisacodyl 5 mg Tablet 40 MG PO (16:13)
[2024-04-18] MEDS: magnesium citrate Btl 296 mL PO (16:13)
--- NOTE | 2024-04-18 19:48 | PC.NURSE ---
Refusing bowel prep: Patient refused to drink any of the bowel prep for upcoming procedure. Patient was educated on importance of bowel prep and continued to refuse. Dr. Samaniego was made aware.
--- NOTE | 2024-04-18 19:49 | PC.NURSE ---
Refusing Scope/bowel prep: Patient continued to refuse bowel prep then stated I do not want to take that stuff and I do not want the scope . Dr. Mata was contacted and made aware of patient's refusal. Adolfo gave telephone orders to continue with diet order as scheduled and he will speak with patient in the morning.
[2024-04-18] MEDS: iohexol 350 mg/mL 500 mL Btl (per mL) IV (20:25)
[2024-04-18 20:49] LABS: Basophils # 0.1 10^3/uL (0.0-0.1); Basophils % 0.9 %; Eosinophils # 0.2 10^3/uL (0.0-0.8); Eosinophils % 2.8 %; Lymphocytes # 1.5 10^3/uL (0.8-4.8); Lymphocytes % 23.5 %; Mean Corpuscular HGB Conc 26.2 g/dL (30-55); Mean Corpuscular Hemoglobin 17.5 pg (27-33); Mean Corpuscular Volume 66.8 fl (85-98); Mean Platelet Volume 8.9 fL (7.4-10.4); Monocytes # 0.6 10^3/uL (0.2-0.9); Monocytes % 9.4 %; Neutrophils # 4.02 10^3/uL (1.8-7.7); Neutrophils % 63.1 %; Nucleated Red Blood Cells % 0 %; Platelet Count 297 10^3/cmm (157-399); Red Blood Count 3.89 10^6/uL (3.85-5.65); White Blood Count 6.38 10^3/uL (3.29-11.43)
[2024-04-18 20:58] LABS: Lactic Acid level (Lactate) 1.1 mmol/L (0.5-2.2)
[2024-04-19] VITALS (58 sets, daily range): BP systolic 91–117; BP diastolic 45–72; PULSE 50–78; RESP 0–25; TEMP 36.2–36.6; O2SAT 97–100; BMI 23.8
[2024-04-19] MEDS: sodium chloride 0.9% 100 mL Bag 50 ML IV (00:05)
--- NOTE | 2024-04-19 00:54 | PC.NURSE ---
Transfusion of RBCs: Patient's hbg went from 6.4 to 6.8 after one unit of packed RBCs. Dr. Samaniego was contacted and gave telephone orders to transfuse another unit of RBCs.
[2024-04-19] MEDS: chlordiazePOXIDE 25 mg Capsule 50 MG PO ×4 (01:46→19:46)
[2024-04-19] MEDS: sucralfate 1 gm/10 mL Oral Liq UDC PO ×4 (01:46→19:46)
[2024-04-19 04:20] LABS: Basophils # 0.1 10^3/uL (0.0-0.1); Basophils % 0.7 %; Eosinophils # 0.3 10^3/uL (0.0-0.8); Eosinophils % 3.7 %; Hematocrit 28.2 % (36-47); Lymphocytes # 1.5 10^3/uL (0.8-4.8); Lymphocytes % 21.8 %; Mean Corpuscular Hemoglobin 18.2 pg (27-33); Mean Corpuscular Volume 67.5 fl (85-98); Mean Platelet Volume 9.4 fL (7.4-10.4); Monocytes # 0.6 10^3/uL (0.2-0.9); Monocytes % 9.1 %; Neutrophils # 4.39 10^3/uL (1.8-7.7); Neutrophils % 64.3 %; Nucleated Red Blood Cells % 0 %; Platelet Count 305 10^3/cmm (157-399); Red Blood Count 4.18 10^6/uL (3.85-5.65); Red Cell Distribution Width 24.6 % (12.1-15.1); White Blood Count 6.83 10^3/uL (3.29-11.43)
[2024-04-19 04:44] LABS: Anion Gap 12.3 (5-19); Blood Urea Nitrogen 4 mg/dL (6-20); Calcium 7.5 mg/dL (8.5-10.5); Carbon Dioxide 23 mmol/L (22-29); Chloride 108 mmol/L (98-107); Creatinine Clr Calc Pharmacy 196.2579; Glomerular Filtration Rate 179.6 mL/min (90-130); Glucose 101 mg/dL (65-115); Osmolality Calculated 287 mOsm/kg (285-295); Potassium 3.3 mmol/L (3.5-5.1); Sodium 140 mmol/L (136-145)
[2024-04-19] MEDS: pantoprazole 40 mg SDV IVP ×2 (05:02→18:30)
[2024-04-19] MEDS: folic acid 1 mg Tablet PO (08:03)
[2024-04-19] MEDS: multivitamin therapeutic Tablet 1 TAB PO (08:03)
[2024-04-19] MEDS: iron sucrose 200 MG in sodium chloride 0.9% (100 ml) 100 ML 220 MG IV (08:04)
[2024-04-19] MEDS: thiamine 100 mg Tablet PO (08:04)
[2024-04-19] MEDS: dextrose 5%-sod chloride 0.9% 1,000 ML 75 ML IV (08:35)
--- NOTE | 2024-04-19 08:52 | ANES.PREANE2 ---
Pre-Anesthetic Assessment Height/Weight: Height 5 ft 7 in Weight 152 lb 1.903 oz Temp Pulse Resp BP Pulse Ox O2 Del Method 97.2 F L 59 L 22 H 115/59 99 Nasal Cannula 04/19/24 04:00 04/19/24 08:45 04/19/24 08:45 04/19/24 08:45 04/19/24 08:45 04/19/24 04:00 Operation Date: 04/19/24 13:00 Proposed Procedures p EGD(Not Applicable) - Kamaljit Mata DO s Colonoscopy(Not Applicable) - Kamaljit Mata DO Familial anesthetic complications: none Social Alcohol and Tobacco Exam alert, oriented x 3, clear to auscultation bilaterally and regular rate & rhythm Airway Submandibular: within normal limits Cervical ROM: within normal limits Mallampati: Class II Dentition: false and other (edentulous) Anesthetic Plan Other: Patient initially admitted on a 96-hour bed hold for suicidal ideations Found to be anemic on initial labs Hemoglobin today 7.6 up from yesterday(6.8) Chronic alcoholic, arrived intoxicated Patient did not complete bowel prep Plan for MAC anesthesia Medications/Allergies Home Medications Medication Instructions Recorded Confirmed Last Taken Type methocarbamol 500 mg tablet 1,000 mg (2 x 500 mg) PO Q8H #30 12/01/23 04/18/24 Unknown Rx tabs methylprednisolone 4 mg tablets in See Rx Instructions PO .COMPLEX 12/01/23 04/18/24 Unknown Rx a dose pack (Medrol ([place])) #21 ea hydrocodone 5 mg-acetaminophen 325 1 tab PO Q8H PRN pain #7 tabs 03/09/24 04/18/24 Unknown Rx mg tablet mupirocin 2 % topical ointment 1 applic topical BID #50 grams 03/09/24 04/18/24 Unknown Rx Allergies Allergy/AdvReac Type Severity Reaction Status Date / Time morphine Allergy ALGY-Difficulty Verified 04/18/24 04:17 Breathing Current Medications Generic Name Dose Route Start Last Admin Trade Name Freq PRN Reason Stop Dose Admin Chlordiazepoxide 50 mg 04/18/24 07:42 04/19/24 08:03 Chlordiazepoxide 25 Mg Capsule PO 50 mg Q6H COSMO Administration Folic Acid 1 mg 04/18/24 09:00 04/19/24 08:03 Folic Acid 1 Mg Tablet PO 1 mg DAILY COSMO Administration Dextrose/Sodium Chloride 1,000 mls @ 75 mls/hr 04/18/24 07:42 04/19/24 08:35 Dextrose 5%-Sod Chloride 0.9% IV 75 mls/hr .[id number] COSMO Administration Iron Sucrose 200 mg/ Sodium 110 mls @ 220 mls/hr 04/18/24 07:42 04/19/24 08:35 Chloride IV 04/22/24 08:11 Infused Q24H COSMO Infusion Multivitamins Therapeutic 1 tab 04/18/24 09:00 04/19/24 08:03 Multivitamin Therapeutic Tablet PO 1 tab DAILY COSMO Administration Pantoprazole Sodium 40 mg 04/18/24 18:00 04/19/24 05:02 Pantoprazole 40 Mg Sdv IVP 40 mg Q12H COSMO Administration Sucralfate 1 gm 04/18/24 07:42 04/19/24 08:03 Sucralfate 1 Gm/10 Ml Oral Liq Udc PO 1 gm Q6H COSMO Administration Thiamine Mononitrate 100 mg 04/18/24 09:00 04/19/24 08:04 Thiamine 100 Mg Tablet PO 100 mg DAILY COSMO Administration PFSH Anesthesia Medical History History of alcoholism Surgical History History of tubal ligation History of cholecystectomy Social History Smoking and tobacco/nicotine status: never used tobacco/nicotine Alcohol intake: current Substance/Drug Use: never Female Reproductive History Date of last menstrual period: 04/17/24 Data Anesthesia 04/19/24 04:09 04/19/24 04:09 Short CBC 04/18/24 04/18/24 04/19/24 Range/Units 04:50 20:35 04:09 WBC 8.26 6.38 6.83 (3.29-11.43) 10^3/uL Hgb 6.40 L* 6.80 L 7.60 L (11.27-16.99) g/dL Hct 26.1 L 26.0 L 28.2 L (36-47) % MCV 63.5 L 66.8 L D 67.5 L (85-98) fl Plt Count 416 H 297 305 (157-399) 10^3/cmm Neut % (Auto) 56.9 63.1 64.3 % Neut # (Auto) 4.70 4.02 4.39 (1.8-7.7) 10^3/uL BMP 04/18/24 04/19/24 04:50 04:09 Sodium 145 140 Potassium 3.7 3.3 L Chloride 108 H 108 H Carbon Dioxide 23 23 BUN 5 L 4 L Creatinine 0.6 0.4 L Glucose 141 H 101 Calcium 7.8 L 7.5 L Liver Function 04/18/24 Range/Units 04:50 Total Bilirubin 0.2 (0.15-1.2) mg/dL AST 18 (0-32) U/L ALT 9 (0-33) U/L Alkaline Phosphatase 66 (35-105) U/L Albumin 4.3 (3.5-5.2) g/dL Urine 04/18/24 Range/Units 05:28 Urine Color Yellow (Yellow) Urine Appearance Clear (CLEAR) Urine pH 6.5 (5-7) Ur Specific [place] 1.003 L (1.005-1.030) Urine Protein Negative (Negative) Urine Glucose (UA) Negative (Normal) Urine Ketones Negative (Negative) Urine Nitrate Negative (Negative) Urine Bilirubin Negative (Negative) Ur Leukocyte Esterase Negative (Negative) Blood Bank 04/18/24 06:03 Blood Type A Positive Rho(D) Type Rh positive Antibody Screen Negative Coags 04/18/24 04:50 PT 14.10 INR 1.05 APTT 29.6 Microbiology 04/18/24 23:28 Occult Blood (FIT) - Final Stool Routine Collection Cardiac Studies: No Data to Display
--- NOTE | 2024-04-19 10:55 | P.PN_ITS ---
Subjective 2 Subjective: Patient seen and examined. Still reporting no abdominal pain. She refused the majority of her bowel prep but reports she is having thin liquid stools. Vitals/I&O/Wt Last Vital Signs Temp 97.2 F L 04/19/24 04:00 Pulse 59 L 04/19/24 08:45 Resp 22 H 04/19/24 08:45 BP 115/59 04/19/24 08:45 Pulse Ox 99 04/19/24 08:45 O2 Del Method Nasal Cannula 04/19/24 04:00 04/18/24 04/19/24 04/19/24 22:59 06:59 14:59 Intake Total 1050 / 2171.2 1350 / 3521.2 110 / 110 Output Total 200 / 200 Balance 850 / 1971.2 1350 / 3321.2 110 / 110 Weight last 48 hrs Weight 152 lb 1.903 oz Weight 149 lb 14.629 oz Weight 150 lb Physical Exam 2 Narrative: General: No acute distress, awake alert and oriented x 3 Abdomen: Soft, nontender, nondistended Data 04/19/24 04:09 04/19/24 04:09 Micro: Microbiology 04/18/24 23:28 Occult Blood (FIT) - Final Stool Routine Collection A&P Assessment and plan (1) Iron deficiency anemia: Plan EGD and colonoscopy The risks and benefits of the procedure, including bleeding, infection, intestinal perforation requiring surgery, missed lesion were explained to the patient. The patient is understanding of the risks and wishes to proceed. Medical management per hospitalist Attestations 2 Medical Necessity Statement*: per primary Coding Level of Care Code 87862 Diagnoses Iron deficiency anemia D50.9
--- NOTE | 2024-04-19 11:50 | ANE.PACU2 ---
Inpatient post-anesthesia follow up: Airway intact: Yes Vital signs: Temperature 97.2 F Pulse Rate 78 Respiratory Rate 20 Blood Pressure 111/71 Pulse Oximetry 99 Oxygen Delivery Me thod Room Air Oxygen Flow Rate Fraction of Inspir ed Oxygen Hydration adequate: Yes Nausea and vomiting: No Pain level: 1 Mental status: Baseline
--- NOTE | 2024-04-19 13:59 | P.PN_ITS ---
Subjective 2 Subjective: EGD today at [address] Mata, mainly unremarkable. Hemoglobin 7.6 today. MCV 67.5, RDW 24.6. Patient requesting to eat. Vitals/I&O/Wt Last Vital Signs Temp 97.2 F L 04/19/24 04:00 Pulse 78 04/19/24 12:00 Resp 20 H 04/19/24 12:00 BP 111/71 04/19/24 12:00 Pulse Ox 99 04/19/24 12:00 O2 Del Method Room Air 04/19/24 12:00 04/18/24 04/19/24 04/19/24 22:59 06:59 14:59 Intake Total 1050 / 2171.2 1350 / 3521.2 610 / 610 Output Total 200 / 200 Balance 850 / 1971.2 1350 / 3321.2 610 / 610 Weight last 48 hrs Weight 69 kg Weight 68 kg Weight 68.039 kg Physical Exam 2 Const: COMMON NORMALS: no acute distress and patient oriented x3 O RIENTATION/CONSCIOUSNESS: Yes awake, Yes oriented to person and Yes oriented to place HENMT: COMMON NORMALS: normocephalic HEAD & SCALP: normocephalic Eye: OTHER: Conjunctival pallor Neck/C-Spine: COMMON NORMALS: no JVD Resp: COMMON NORMALS: normal respiratory effort, No retractions, No use of accessory muscles and clear to auscultation bilaterally AUSCULTATION: clear to auscultation bilaterally Cardio: COMMON NORMALS: no JVD, regular rate, regular rhythm, S1 normal heart sound present and S2 normal heart sound present RATE: regular rate RHYTHM: regular rhythm HEART SOUNDS: S1 normal heart sound present and S2 normal heart sound present GI: COMMON NORMALS: Normal to inspection, nondistended, normoactive bowel sounds present and Soft to palpation PALPATION: Yes Soft to palpation O THER: Nonspecific tenderness in all 4 quadrants Extremity: COMMON NORMALS: no calf tenderness and no pedal edema Neuro: COMMON NORMALS: patient oriented x3, CN's II-XII intact bilaterally, moves all extremities and no focal motor deficits SENSORIUM/ORIENTATION: Yes oriented to person and Yes oriented to place Psych: OTHER: Requiring a sitter at this time. Agitated and says she wants to eat. Data 04/19/24 04:09 04/19/24 04:09 Micro: Microbiology 04/18/24 23:28 Occult Blood (FIT) - Final Stool Routine Collection A&P Assessment and plan (1) Iron deficiency anemia: (2) Acute anemia: (3) Alcoholism: (4) Suicidal ideation: (5) Alcohol intoxication: Qualifiers: Complication of substance-induced condition: uncomplicated Qualified Code(s): F10.920 - Alcohol use, unspecified with intoxication, uncomplicated Plan Suicidal ideation -Has a 96-hour hold -Going to ICU -Once medically stable, can go to neuropsychiatric unit Acute anemia -Has evidence of iron deficiency anemia ferritin levels 8, iron level 7 ? Does report at times heavy menstrual periods, reports irregular periods, but is not able to give more information, as she becomes easily agitated, easily distracted ? Denies any bloody black stools, no hematemesis, denies history of esophageal varices ? Does have a history of alcoholism ? Plan ? CT scan abdomen pelvis ? Transfuse 1 unit PRBC -will start IV venofer -protonix -carafate -general surgery consulted for EGD and colonoscopy -keep NPO -full code -scd for dvt prophylaxis, lovenox relatively contraindicated [facility] -[facility] -will place on scheduled librium 50mg q6h -banana bag 04/19 ? Check hemoglobin electrophoresis ? Most likely has severe iron deficiency anemia ? Has reported heavy menstrual periods at times. ? Does have history of alcoholism ? Status post 1 unit packed RBC ? IV Venofer ordered x 5 days total ? Check peripheral smear. ? EGD unremarkable as per Dr. Mata. Final written report pending ? Transfer to floor. ? Continue patient on 96-hour hold. ? Psych consult in place. Attestations 2 Medical Necessity Statement*: Patient requires hospitalization, inpatient, greater than 2 midnight alcohol intoxication, iron deficiency anemia, acute anemia, suicidal ideation, 96-hour hold Diagnoses Iron deficiency anemia D50.9 Acute anemia D64.9 Alcoholism F10.20 Suicidal ideation R45.851 Alcohol intoxication F10.920 Complication of substance-induced condition: uncomplicated
--- NOTE | 2024-04-19 15:27 | PC.NURSE ---
Mom visiting from 3-4 per psych protocol.
[2024-04-19 17:20] LABS: LAB Peripheral Smear Sent for Review
--- NOTE | 2024-04-19 19:56 | PC.NURSE ---
Pt irritable, states she is pissy b/c noone will leave her alone. Pt is angry that she can not have her phone. Pt claims that if staff would have just let her go she would not have these bruises on her. Pt is in denile of events that led to her admission to the hospital. Pt has poor insight. One on one care and monitoring continues.
--- NOTE | 2024-04-19 21:25 | ECG_ITS ---
[facility] Test Date: 2024-04-19 Pat Name: Arlyn Waller Department: Room: 259 Gender: Female [place]: : 1985 Requested By: Jose Samaniego Order Number: [id number] Reading MD: LEONID BENTON Measurements Intervals [place] Rate: 80 P: 24 OK: 124 QRS: 54 QRSD: 90 T: 52 QT: 368 QTc: 426 Interpretive Statements SINUS RHYTHM No previous ECG available for comparison Electronically Signed On 04-21-2024 18:53:47 CDT by LEONID BENTON [id number]
[2024-04-19] MEDS: acetaminophen 325 mg Tablet 650 MG PO (21:31)
[2024-04-19 22:17] LABS: Troponin T (5th) Once < 6 ng/L (0-10)
[2024-04-19] MEDS: nicotine 14 mg Patch 1 PATCH TRANSDERMA (22:41)
[2024-04-20] VITALS (10 sets, daily range): BP systolic 98–151; BP diastolic 58–89; PULSE 61–77; RESP 16–19; TEMP 36.4–37.1; O2SAT 95–100
[2024-04-20] MEDS: chlordiazePOXIDE 25 mg Capsule 50 MG PO ×4 (00:53→19:55)
[2024-04-20] MEDS: sucralfate 1 gm/10 mL Oral Liq UDC PO ×3 (00:53→15:33)
[2024-04-20] MEDS: dextrose 5%-sod chloride 0.9% 1,000 ML 75 ML IV ×2 (02:08→22:28)
[2024-04-20] MEDS: pantoprazole 40 mg SDV IVP (05:55)
[2024-04-20 06:43] LABS: Basophils % 0.9 %; Eosinophils # 0.3 10^3/uL (0.0-0.8); Eosinophils % 5.6 %; Hematocrit 26.4 % (36-47); Lymphocytes # 1.2 10^3/uL (0.8-4.8); Lymphocytes % 26.7 %; Mean Corpuscular HGB Conc 26.5 g/dL (30-55); Mean Corpuscular Hemoglobin 18.2 pg (27-33); Mean Corpuscular Volume 68.8 fl (85-98); Mean Platelet Volume 9.5 fL (7.4-10.4); Monocytes # 0.3 10^3/uL (0.2-0.9); Monocytes % 7.6 %; Neutrophils # 2.59 10^3/uL (1.8-7.7); Neutrophils % 58.3 %; Nucleated Red Blood Cells % 0 %; Platelet Count 307 10^3/cmm (157-399); Red Blood Count 3.84 10^6/uL (3.85-5.65); Red Cell Distribution Width 25.2 % (12.1-15.1); White Blood Count 4.45 10^3/uL (3.29-11.43)
[2024-04-20 06:59] LABS: Blood Urea Nitrogen 7 mg/dL (6-20); Calcium 7.8 mg/dL (8.5-10.5); Carbon Dioxide 23 mmol/L (22-29); Chloride 108 mmol/L (98-107); Creatinine Clr Calc Pharmacy 161.6309; Glomerular Filtration Rate 138.8 mL/min (90-130); Glucose 114 mg/dL (65-115); Osmolality Calculated 291 mOsm/kg (285-295); Sodium 141 mmol/L (136-145)
[2024-04-20] MEDS: folic acid 1 mg Tablet PO (09:18)
[2024-04-20] MEDS: multivitamin therapeutic Tablet 1 TAB PO (09:18)
[2024-04-20] MEDS: thiamine 100 mg Tablet PO (09:18)
[2024-04-20] MEDS: nicotine 14 mg Patch 1 PATCH TRANSDERMA (09:20)
[2024-04-20] MEDS: iron sucrose 200 MG in sodium chloride 0.9% (100 ml) 100 ML 220 MG IV (10:18)
[2024-04-20] MEDS: diazePAM 2 mg Tablet PO (12:05)
--- NOTE | 2024-04-20 12:43 | PC.NURSE ---
pt has order for 1 unit of blood, pt refused administration, made aware. educ pt on risks and benefits of receiving blood. pt still refused.
--- NOTE | 2024-04-20 17:12 | P.PN_ITS ---
Subjective 2 Subjective: Patient seen and examined. Denies any abdominal pain. Tolerating regular diet. Denies any blood in her stool Vitals/I&O/Wt Last Vital Signs Temp 98.8 F 04/20/24 17:05 Pulse 69 04/20/24 17:05 Resp 18 04/20/24 17:05 BP 151/84 04/20/24 17:05 Pulse Ox 99 04/20/24 17:05 O2 Del Method Room Air 04/20/24 16:12 04/20/24 04/20/24 04/20/24 06:59 14:59 22:59 Intake Total 1270 / 1270 0 / 1270 Balance 1270 / 1270 0 / 1270 Weight last 48 hrs Weight 162 lb 9.6 oz Weight 152 lb 1.903 oz Physical Exam 2 Narrative: General: No acute distress, awake alert and oriented x 3 Abdomen: Soft, nontender, nondistended Data 04/20/24 06:17 04/20/24 06:17 A&P Assessment and plan (1) Iron deficiency anemia: Plan EGD and colonoscopy were within normal limits General Surgery will sign off Please reconsult if the need arises Medical management per hospitalist Attestations 2 Medical Necessity Statement*: Per primary Coding Level of Care Code 72962 Diagnoses Iron deficiency anemia D50.9
--- NOTE | 2024-04-20 18:40 | P.PN_ITS ---
Subjective 2 Subjective: Patient appears very agitated. She has multiple complaints. She complains of multiple IV sticks and pain in her bilateral arms. She states nobody is telling her anything about what is going on. Discussed workup and plan of care at length. All questions were answered. She is agreeable to blood transfusion. She does not want to go to the inpatient psychiatry. We discussed her 96-hour hold. Medications: Reviewed: Yes Vitals/I&O/Wt Last Vital Signs Temp 98.8 F 04/20/24 17:05 Pulse 69 04/20/24 17:05 Resp 18 04/20/24 17:05 BP 151/84 04/20/24 17:05 Pulse Ox 99 04/20/24 17:05 O2 Del Method Room Air 04/20/24 16:12 04/20/24 04/20/24 04/20/24 06:59 14:59 22:59 Intake Total 1270 / 1270 980 / 2250 Balance 1270 / 1270 980 / 2250 Weight last 48 hrs Weight 73.754 kg Weight 69 kg Physical Exam 2 Narrative: General: Patient is awake. Agitated. Head: Normocephalic. Atraumatic. EOM intact. Neck: No JVD. Cardiovascular: RRR. No gallops. No murmurs. Lungs: Clear to auscultation, no use of accessory muscles, no crackles or wheezes. Skin: No jaundice. No rashes. Abdomen: Normal bowel sounds, abdomen soft and nontender. Extremities: No cyanosis or clubbing. Musculoskeletal: No swollen or erythematous joints. Neurological: Moves all 4 extremities. No myoclonus. Data 04/20/24 06:17 04/20/24 06:17 A&P Assessment and plan (1) Iron deficiency anemia: (2) Acute anemia: (3) Alcoholism: (4) Suicidal ideation: (5) Alcohol intoxication: Qualifiers: Complication of substance-induced condition: uncomplicated Qualified Code(s): F10.920 - Alcohol use, unspecified with intoxication, uncomplicated Plan Suicidal ideation -Patient is under 96-hour hold -Anticipate transferring to NPU on Monday -Sitter -Suicide precautions Iron deficiency anemia secondary to menorrhagia -Has evidence of iron deficiency anemia ferritin levels 8, iron level 7 -GI source was considered, EGD/colonoscopy unremarkable -Proceed with additional 1 packed red blood cell -Repeat labs in a.m. Alcohol intoxication -[facility] protocol Agitation -Psychosocial support offered Tobacco use disorder -Would benefit from cessation Attestations 2 Medical Necessity Statement*: Patient requires ongoing hospitalization for blood transfusion and psychiatric care Coding Level of Care Code Acute Code for Chg Fwd Diagnoses Iron deficiency anemia D50.9 Acute anemia D64.9 Alcoholism F10.20 Suicidal ideation R45.851 Alcohol intoxication F10.920 Complication of substance-induced condition: uncomplicated
[2024-04-20 19:31] LABS: Covid PCR NEGATIVE (Negative); Influenza A NEGATIVE (Negative); Influenza B NEGATIVE (Negative); Respiratory Syncytial Virus Ce NEGATIVE (Negative)
--- NOTE | 2024-04-20 20:28 | PC.NURSE ---
Contacted Dr. Samaniego regarding unit of PRBC not being able to be infused r/t inability to get iv access. Ok for midline placement for blood tranfusion. Instructed to recheck H&H after pt receives blood.
--- NOTE | 2024-04-20 20:30 | PC.NURSE ---
Pt denies depression, endorses anxiety in r/t being transferred to NPU after stabilized. Pt states that she will do any procedure necessary to keep from going to the NPU . Pt denies AVH, SI/HI. No s/sx of ETOH w/d. Pt requests to shower, supplies given for shower. One to one sitter at bedside.
--- NOTE | 2024-04-20 21:20 | PC.NURSE ---
Addendum entered by Leann Cuellar RN 04/20/24 21:25: Staff here to place midline. PRBC's that was hung at approximately 1500 is d/t no iv access and pt will have to have another unit from lab. NO to administer unit of PRBCs to replace back that was not able to be administered. Lab notified. Original Note: Staff here to place midline. PRBC's that was hung at approximately 1500 is and pt will have to have another unit from lab. NO to administer unit of PRBCs to replace back that was not able to be administered. Lab notified.
[2024-04-20] MEDS: LORazepam 2 mg/mL INJ 1 mL 1 MG IM (21:43)
--- NOTE | 2024-04-20 22:36 | PICC.NOTE ---
Midline placed to left basilic vein. Referred to vascular access nurse for midline placement due to poor access and need for blood transfusion. Risks and benefits discussed and informed consent obtained from pt. Left arm assessed with left basilic vein measuring 6.0 mm, straight, and apparent best choice for placement. Using sterile technique and MST, left basilic vein accessed x 1 stick. Mid-arm circumference measured 10 cm from left AC 30 cm. Trimmed cath 10 cm with 0 cm external length noted. Line secured with stat-lock. Insertion site covered with Biopatch and TSM. Report given to bedside nurse, SUZANNA Noriega.
[2024-04-21] VITALS (10 sets, daily range): BP systolic 96–122; BP diastolic 59–77; PULSE 58–79; RESP 12–18; TEMP 36.7–37.1; O2SAT 95–100
[2024-04-21] MEDS: chlordiazePOXIDE 25 mg Capsule 50 MG PO ×4 (01:11→20:08)
[2024-04-21] MEDS: sodium chloride 0.9% 100 mL Bag 50 ML IV (02:51)
[2024-04-21 04:17] LABS: Basophils % 0.7 %; Eosinophils # 0.3 10^3/uL (0.0-0.8); Eosinophils % 4.7 %; Hematocrit 29.9 % (36-47); Lymphocytes # 1.4 10^3/uL (0.8-4.8); Mean Corpuscular HGB Conc 27.8 g/dL (30-55); Mean Corpuscular Hemoglobin 19.7 pg (27-33); Mean Platelet Volume 9.5 fL (7.4-10.4); Monocytes # 0.5 10^3/uL (0.2-0.9); Neutrophils # 3.41 10^3/uL (1.8-7.7); Neutrophils % 59.9 %; Nucleated Red Blood Cells % 0 %; Platelet Count 299 10^3/cmm (157-399); Red Blood Count 4.21 10^6/uL (3.85-5.65); Red Cell Distribution Width 27.5 % (12.1-15.1); White Blood Count 5.69 10^3/uL (3.29-11.43)
[2024-04-21 04:37] LABS: Albumin Level 3.2 g/dL (3.5-5.2); Anion Gap 12.1 (5-19); Blood Urea Nitrogen 6 mg/dL (6-20); Calcium 8.1 mg/dL (8.5-10.5); Carbon Dioxide 26 mmol/L (22-29); Chloride 107 mmol/L (98-107); Creatinine Clr Calc Pharmacy 161.7632; Glomerular Filtration Rate 138.8 mL/min (90-130); Glucose 106 mg/dL (65-115); Magnesium 1.6 mg/dL (1.7-2.3); Phosphorus 4.1 mg/dL (2.5-4.5); Potassium 3.1 mmol/L (3.5-5.1); Sodium 142 mmol/L (136-145)
[2024-04-21] MEDS: nicotine 14 mg Patch 1 PATCH TRANSDERMA (08:42)
[2024-04-21] MEDS: thiamine 100 mg Tablet PO (08:42)
[2024-04-21] MEDS: multivitamin therapeutic Tablet 1 TAB PO (08:42)
[2024-04-21] MEDS: folic acid 1 mg Tablet PO (08:42)
[2024-04-21] MEDS: iron sucrose 200 MG in sodium chloride 0.9% (100 ml) 100 ML 220 MG IV (08:48)
--- NOTE | 2024-04-21 14:25 | PC.NURSE ---
Patient's mother notified this RN that the patient has an MRI scheduled at [facility] for a MRI with neurology on 04/25/24. This RN assured her the doctor and casework supervisor would be notified to make sure this would be addressed if she had to stay past this date.
--- NOTE | 2024-04-21 15:15 | PM.PN ---
Subjective Subjective: Patient is agitated that she has to go to behavioral health. Discussed her lab results. Strongly recommended outpatient [employer] follow-up for menorrhagia. Afebrile. Medications: Reviewed: Yes Vitals/I&O/Wt Last Vital Signs Temp 98.2 F 04/21/24 12:00 Pulse 69 04/21/24 12:00 Resp 17 04/21/24 12:00 BP 107/62 04/21/24 12:00 Pulse Ox 95 04/21/24 12:00 O2 Del Method Room Air 04/21/24 12:00 04/21/24 04/21/24 04/21/24 06:59 14:59 22:59 Intake Total 152.5 / 3402.5 1437.5 / 1437.5 Balance 152.5 / 3402.5 1437.5 / 1437.5 Weight last 48 hrs Weight 73.89 kg Weight 73.754 kg Physical Exam Narrative: General: Patient is awake. Agitated. Head: Normocephalic. Atraumatic. EOM intact. Neck: No JVD. Cardiovascular: RRR. No gallops. No murmurs. Lungs: Clear to auscultation, no use of accessory muscles, no crackles or wheezes. Skin: No jaundice. No rashes. Abdomen: Normal bowel sounds, abdomen soft and nontender. Extremities: No cyanosis or clubbing. Musculoskeletal: No swollen or erythematous joints. Neurological: Moves all 4 extremities. No myoclonus. Data 04/21/24 04:00 04/21/24 04:00 A&P Assessment and plan (1) Iron deficiency anemia: (2) Acute anemia: (3) Alcoholism: (4) Suicidal ideation: (5) Alcohol intoxication: Qualifiers: Complication of substance-induced condition: uncomplicated Qualified Code(s): F10.920 - Alcohol use, unspecified with intoxication, uncomplicated Plan Suicidal ideation -Patient is under 96-hour hold -Medically cleared for transfer to NPU -Patient discussed w/ Dr Byers who kindly accepts Iron deficiency anemia secondary to menorrhagia -GI source was considered, EGD/colonoscopy unremarkable -Recommend outpatient OBGYN evaluation Agitation Tobacco use disorder -Would benefit from cessation Alcohol intoxication, resolved Attestations Medical Necessity Statement*: Patient medically stable for transfer to psychiatric unit. Coding Level of Care Code Acute Code for Chg Fwd Diagnoses Iron deficiency anemia D50.9 Acute anemia D64.9 Alcoholism F10.20 Suicidal ideation R45.851 Alcohol intoxication F10.920 Complication of substance-induced condition: uncomplicated
--- NOTE | 2024-04-21 15:51 | P.NPUHP_ITS ---
Providers/Chief Complaint 2 Admitting Physician: Jose Samaniego MD Chief Complaint: MHE HPI NPU History of Present Illness Arlyn Waller is a 38 year old female who presented to the emergency department with the following report: Chief Complaint: Psychiatric Symptoms Stated Complaint: MHE Time Seen by Provider: 04/18/24 04:14 History of Present Illness: Patient brought in by EMS for suicidal ideation. Patient has superficial cut on her right wrist. Patient mitts to drinking tonight. She is unwilling to share any other details except we will address and yell profanities. Patient threw a container urine on the EMS on the way here. Patient is uncooperative with anything we asked her to do. She was admitted to [facility] for definitive treatment of her medical comorbidities on a 96-hour hold. She had multiple procedures to ensure that she was medically stable and a psychiatric consult was requested. An excerpt of that consult is included below for context. She was medically cleared and transferred to the neuropsychiatric unit for definitive treatment of her psychiatric issues and to further evaluate her secondary to her 96-hour hold. She presented with a blood alcohol of 302 with her blood alcohol being 247 at her admission back in 2019 and over 200 at a difference emergency department visit between her last hospitalization and this 1. Staff reports she was very resistant to conversation and reported that she would only speak to the physician. She presented today reporting that she needed to go home immediately. She discussed that she needed to go to work and that she would come back right away. We discussed the fact that we do not function that way that one of the main purposes of her maintaining until tomorrow so that the social work team can see her and we can begin to look at possibilities for follow-up. She was very ambivalent about drug and alcohol treatment downplaying her alcohol use and saying that she knows how much to take but that she was celebrating and that she accidentally took too much. We discussed the growing level of her BAL. We discussed the benefit that we feel she would have from sober living treatment. We discussed the benefit of having a treatment provider to discuss all the things she reported as stressors so that she could avoid using alcohol as the solution. We discussed her 3 children and the need for her to have sobriety to be in the best position to support them. She was resistant to medication and was mostly focused on discharge. We agreed to have the social work team connect with her in the morning and they would consider whether discharge was appropriate at that time but we did discuss her hold being up on Monday. Per her 04/18/2024 [facility] inpatient psychiatric consultation: History of Present Illness Arlyn Waller is a 38 year old female with a history of borderline personality traits, major depressive disorder and alcohol abuse who presented to the emergency department having been brought in by EMS for suicidal ideation. The patient had a blood alcohol level of 302 and a hemoglobin of 6.4 and was admitted to the intensive care unit involuntarily. She had been aggressive and extremely volatile while in the emergency department with hitting and kicking people noted and verbal abuse by the patient towards the staff that was attempting to help her. She had received 100 mg of IV ketamine and required restraints. The patient was brought to the ICU and again had been placed in restraints and appeared out of restraints in the ICU. She was unable to provide any information as she was difficult to arouse as she had received 10 mg of olanzapine this morning due to agitation. Previous psychiatric records from an inpatient hospitalization were reviewed. She had indicated to staff that she had a significant problem with alcohol but was not clear on how much alcohol she had taken on a daily basis. Previous records had indicated that the patient had a significant history of alcohol use in 2019 at that time having consumed half a gallon of whiskey on a daily basis. She had made a superficial cut on right wrist. Inpatient psychiatric history: Patient has at least 1 previous inpatient hospitalization in May 2019 at the neuropsychiatric unit. She has a history of suicide attempts along with reported history of self-injurious behavior having attempted to eat the contents of an instant cold pack with suicidal intent reported 5 years ago. Outpatient psychiatric history: Limited at this time although she had reported a history of symptoms suggestive of bipolar 2 disorder in the past. Substance abuse history: She had an history of reported alcohol abuse with a history of withdrawal symptoms. She was unable to clarify whether she had been in many substance abuse treatment in the past either inpatient or outpatient. There had been reported history of alcohol related withdrawal symptoms. Medical history: Iron deficiency anemia, acute anemia Surgical history reported history of , cholecystectomy, tubal ligation Current medications: As stated in primary hospitalist evaluation. Allergies: Morphine Legal history: Unknown Family psychiatric history: Unknown Social history: Unclear, she had previously reported to having been . Records describe her as being currently single. 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 Meds NPU Home Medications Medication Instructions Recorded Confirmed Last Taken Type methocarbamol 500 mg tablet 1,000 mg (2 x 500 mg) PO Q8H #30 12/01/23 04/18/24 Unknown Rx tabs methylprednisolone 4 mg tablets in See Rx Instructions PO .COMPLEX 12/01/23 04/18/24 Unknown Rx a dose pack (Medrol ([place])) #21 ea hydrocodone 5 mg-acetaminophen 325 1 tab PO Q8H PRN pain #7 tabs 03/09/24 04/18/24 Unknown Rx mg tablet mupirocin 2 % topical ointment 1 applic topical BID #50 grams 03/09/24 04/18/24 Unknown Rx Allergies Allergy/AdvReac Type Severity Reaction Status Date / Time morphine Allergy ALGY-Difficulty Verified 04/18/24 04:17 Breathing PFSH NPU 2 PFSH: Medical History History of alcoholism Surgical History History of tubal ligation History of cholecystectomy Social History Smoking and tobacco/nicotine status: never used tobacco/nicotine Alcohol intake: current Substance/Drug Use: never Mental Status Exam 2 MSE Comments: This is a well-nourished, well-developed white female in hospital scrubs with limited grooming and eye contact. Poor dentition/no teeth, no abnormal movements except for psychomotor retardation except for irritability with not being discharged. Semicooperative with exam in no acute distress. Speech was decreased rate and volume. Mood described as depressed, affect congruent. Thought process linear. Thought content: Patient denied homicidal or suicidal ideation, there were no delusions reported or noted, she denied any auditory or visual hallucinations. Attention and concentration were intact and memory was unreliable but none were formally tested. She was alert and oriented x3. Insight and judgment are limited and impulse control was limited versus impaired. Vitals/I&O/Wt Last Vital Signs Temp 98.2 F 04/21/24 12:00 Pulse 69 04/21/24 12:00 Resp 17 04/21/24 12:00 BP 107/62 09/08/24 12:00 Pulse Ox 95 04/21/24 12:00 O2 Del Method Room Air 04/21/24 12:00 04/21/24 04/21/24 04/21/24 06:59 14:59 22:59 Intake Total 152.5 / 3402.5 1437.5 / 1437.5 Balance 152.5 / 3402.5 1437.5 / 1437.5 Weight last 48 hrs Weight 73.89 kg Weight 73.754 kg Data NPU 04/21/24 04:00 04/21/24 04:00 A&P Assessment and plan (1) Alcohol intoxication: Qualifiers: Complication of substance-induced condition: uncomplicated Qualified Code(s): F10.920 - Alcohol use, unspecified with intoxication, uncomplicated (2) Suicidal ideation: (3) Depression, unspecified: Plan 38-year-old female with alcohol dependence currently in the ICU on an involuntary hold with significant agitation and admitted with depressed mood. We will continue to follow as the patient is a limited historian at this time. 1.? Engage patient in individual milieu and group therapy. 2.? Recommend sober living treatment at the highest level of care to which the patient is willing to commit 3.??CIWA for alcohol withdrawal-pHenobarb, librium, continue zyprexa SL for agitation if possible. Patient to remain on ICU with continued evaluation of anemia...possible esophageal varices, etc.... 4.??TO-15 minute checks 5.??Will attempt to gather collateral information. Transfer to neuropsychiatric unit. Attestations NPU 2 Medical Necessity Statement*: Inpatient hospitalization is medically necessary and the clinically appropriate intervention, at this time. We will monitor medications and make changes as indicated. Patient will be in the hospital for over two midnights. Likely length of stay is 1-3 days. Coding Level of Care Code Acute Code for [facility] Fwd Diagnoses Alcohol intoxication F10.920 Complication of substance-induced condition: uncomplicated Suicidal ideation R45.851 Depression, unspecified F32.A
--- NOTE | 2024-04-21 15:53 | PC.NURSE ---
Pt transferred by wheelchair to NPU escorted by security to room 170 with chart and all belongings
--- NOTE | 2024-04-21 17:21 | PC.NURSE ---
TRANSFER NOTE PT WAS A TRANSFER FROM THE MEDICAL SURGICAL UNIT. PT WAS BROUGHT TO THE EMERGENCY DEPARTMENT AFTER ATTEMPTING SUICIDE. PT HAS A SUPERFICIAL LACERATION NOTED TO THE POSTERIOR SIDE OF RIGHT WRIST. PT BAL WAS 302 AND HEMOGLOBIN WAS NOTED 6.8. PT WAS ADMITTED TO THE ICU FOR MEDICAL TREATMENT. WHILE IN THE EMERGENCY DEPARTMENT PT REQUIRED 4 POINT RESTRAINT. UPON ADMIT TO THE NPU PT IS NOTED TO HAVE MULTIPLE BRUISES TO THE BUE. PT IS IRRITABLE AND TEARFUL. PT STATES THAT SHE WANTS TO GO HOME AND GO TO WORK. PT STATED THAT SHE WANTS TO SEE THE DOCTOR. PT STATED THAT IF SHE DOES NOT SEE THE DOCTOR IT WILL GET BAD. PT WAS INFORMED THAT NURSING STAFF CANNOT FORCE THE DOCTOR TO RELEASE HER AND THAT THE PHYSICIAN HAS 24 HOURS FROM THE MOMENT SHE IS ADMITTED TO OUR UNIT TO SEE HER FOR THE FIRST TIME. THIS DID NOT PLEASE PT. PT WAS COOPERATIVE WITH ASSESSMENT.
[2024-04-21] MEDS: nicotine 4 mg lozenge MUCOUS MEM ×2 (18:43→21:40)
[2024-04-22] VITALS (8 sets, daily range): BP systolic 94–129; BP diastolic 57–79; PULSE 60–75; RESP 15–18; TEMP 36.6–36.7; O2SAT 98–100
[2024-04-22] MEDS: chlordiazePOXIDE 25 mg Capsule 50 MG PO ×3 (03:58→13:00)
[2024-04-22] MEDS: multivitamin therapeutic Tablet 1 TAB PO (08:13)
[2024-04-22] MEDS: nicotine 21 mg Patch 1 PATCH TRANSDERMA (08:13)
[2024-04-22] MEDS: folic acid 1 mg Tablet PO (08:13)
[2024-04-22] MEDS: thiamine 100 mg Tablet PO (08:13)
[2024-04-22 14:18] LABS: Basophils % 0.6 %; Eosinophils # 0.3 10^3/uL (0.0-0.8); Eosinophils % 4.1 %; Hematocrit 36.1 % (36-47); Lymphocytes # 1.2 10^3/uL (0.8-4.8); Lymphocytes % 17.1 %; Mean Corpuscular HGB Conc 27.7 g/dL (30-55); Mean Corpuscular Hemoglobin 20.2 pg (27-33); Mean Corpuscular Volume 72.8 fl (85-98); Mean Platelet Volume 9.3 fL (7.4-10.4); Monocytes # 0.4 10^3/uL (0.2-0.9); Monocytes % 6.1 %; Neutrophils # 4.91 10^3/uL (1.8-7.7); Neutrophils % 71.7 %; Nucleated Red Blood Cells % 0 %; Platelet Count 354 10^3/cmm (157-399); Red Blood Count 4.96 10^6/uL (3.85-5.65); Red Cell Distribution Width 29.2 % (12.1-15.1); White Blood Count 6.85 10^3/uL (3.29-11.43)
[2024-04-22] MEDS: acetaminophen 325 mg Tablet 650 MG PO (15:40)
[2024-04-22] MEDS: neomycin-poly-bacitracin oint 28 gm 1 APPLIC TOPICAL (16:28)
--- NOTE | 2024-04-22 18:12 | PC.NURSE ---
Patient upset about not being discharged today. Patient crumpling up paperwork, stating that it is going to bad for staff. Patient tearful, cleanching fists. Security called and present. Patient was able calm down with aid of this nurse. Patient did not want medication, stating so you can just make me go to sleep!
--- NOTE | 2024-04-22 18:29 | PC.NURSE ---
Per Dr. Byers, patient's Librium decreased from 50mg Q6H scheduled, to 25mg Q6H PRN, with 25mg to give now, then the next 25mg to be available to give at 2300 today.
[2024-04-22] MEDS: chlordiazePOXIDE 25 mg Capsule PO (18:40)
--- NOTE | 2024-04-22 20:06 | P.NPUPN_ITS ---
Subjective NPU 2 Subjective: Patient presented today reporting that she is feeling frustrated about not discharging today. We had a fairly lengthy discussion about our continued concerns about her addiction and her lack of willingness to commit to any significant sober living treatment. We discussed concerns about her young children at home and the importance of her being available all the time. She continues to be ambivalent about treatment moving forward and only focusing on getting out reportedly for work. We did have an opportunity to speak with her mother and she understands the circumstance and endorses a plan to be supportive during this discharge process and is going to work with her to hopefully come to emergency planner with the significance of her addiction. Mental Status Exam 2 MSE Comments: This is a well-nourished, well-developed white female in hospital scrubs with limited grooming and eye contact. Poor dentition/no teeth, no abnormal movements except for psychomotor retardation except for irritability with not being discharged. Semicooperative with exam in no acute distress. Speech was decreased rate and volume. Mood described as depressed, affect congruent. Thought process linear. Thought content: Patient denied homicidal or suicidal ideation, there were no delusions reported or noted, she denied any auditory or visual hallucinations. Attention and concentration were intact and memory was unreliable but none were formally tested. She was alert and oriented x3. Insight and judgment are limited and impulse control was limited versus impaired. Vitals/I&O/Wt Last Vital Signs Temp 97.8 F 04/22/24 19:32 Pulse 60 04/22/24 19:32 Resp 18 04/22/24 19:32 BP 121/76 04/22/24 19:32 Pulse Ox 100 04/22/24 19:32 O2 Del Method Room Air 04/22/24 19:32 04/22/24 04/22/24 04/22/24 06:59 14:59 22:59 Intake Total 240 / 240 Output Total 200 / 200 Balance 40 / 40 Weight last 48 hrs Weight 73.89 kg Data NPU 04/22/24 14:07 04/21/24 04:00 A&P Assessment and plan (1) Suicidal ideation: (2) Depression, unspecified: Plan 38-year-old female with alcohol dependence currently in the ICU on an involuntary hold with significant agitation and admitted with depressed mood. We will continue to follow as the patient is a limited historian at this time. 1.? Engage patient in individual milieu and group therapy. 2.? Recommend sober living treatment at the highest level of care to which the patient is willing to commit 3.??CIWA for alcohol withdrawal-pHenobarb, librium, continue zyprexa SL for agitation if possible. Patient to remain on ICU with continued evaluation of anemia...possible esophageal varices, etc.... 4.??TO-15 minute checks 5.??Will attempt to gather collateral information. Transfer to neuropsychiatric unit. 6. Decrease Librium to 25 mg every 6 hours as needed with a plan to have a very limited dose at discharge. Likelihood of discharge tomorrow. Involuntary Hold Information 2 96 Hour Hold: 96 Hour Involuntary Admission: Yes 96 Hour Hold Ending Date: 04/24/24 96 Hour Hold Ending Time: 04:12 Attestations NPU 2 Medical Necessity Statement*: Inpatient hospitalization is medically necessary and the clinically appropriate intervention, at this time. We will monitor medications and make changes as indicated. Patient will be in the hospital for over two midnights. Likely length of stay is 1-2 days. Coding Level of Care Code Acute Code for Chg Fwd Diagnoses Suicidal ideation R45.851 Depression, unspecified F32.A
[2024-04-22] MEDS: quetiapine 25 mg Tablet 50 MG PO (20:44)
[2024-04-23 06:00] VITALS: RESP 18
--- NOTE | 2024-04-23 06:13 | PC.NURSE ---
Patient requested to not be woken this morning for vitals .Charge nurse was notified. Respirations were 18.
[2024-04-23 08:42] VITALS: RESP 18
[2024-04-23] MEDS: nicotine 21 mg Patch 1 PATCH TRANSDERMA (09:05)
[2024-04-23] MEDS: folic acid 1 mg Tablet PO (09:05)
[2024-04-23] MEDS: multivitamin therapeutic Tablet 1 TAB PO (09:05)
[2024-04-23] MEDS: thiamine 100 mg Tablet PO (09:05)
== END 2024-04-23 12:15 | disposition home or self-care (01) | DRG 812 ==
LOC: ER 05:46 → ICU 06:01 → MEDSURG 04-19 16:59 → NP 04-21 15:58
PROVIDERS: Internal Medicine; Surgery; Admitting Provider Family Medicine; Emergency Provider Emergency Medicine; Visit Provider Internal Medicine
PROC: 0DJ08ZZ Inspection of Upper Intestinal Tract, Via Natural or Artificial Opening Endoscopic (ICD-10-PCS; CPT 43235; principal; 2024-04-19 12:30)
PROC: 0DJD8ZZ Inspection of Lower Intestinal Tract, Via Natural or Artificial Opening Endoscopic (ICD-10-PCS; CPT 45378; 2024-04-19 12:30)
DX: D50.0 Iron deficiency anemia secondary to blood loss (chronic) (principal); R45.851 Suicidal ideations; N92.1 Excessive and frequent menstruation with irregular cycle; F32.A Depression, unspecified; F10.229 Alcohol dependence with intoxication, unspecified; Y90.8 Blood alcohol level of 240 mg/100 ml or more; R45.1 Restlessness and agitation
CPT/HCPCS: 0241U; 36415; 36430; 36569; 36592; 43239; 45378; 74177; 80048; 80053; 80069; 80074; 80306; 80307; 81003; 81015; 81025; 82274; 82728; 83540; 83605; 83690; 83735; 84443; 84466; 84484; 85025; 85610; 85730; 86850; 86900; 86920; 87806; 88305; 88342; 93005; 94664; 96372; 96374; 97165; 99285; A4570; C1751; J1756; J2060; J2470; J2704; J3411; J3490; J7030; J7042; P9016; P9040

== ENCOUNTER 2024-04-30 20:22 | Emergency (ER) | payer BC, MEDICAID, SELFPAY ==
[2024-04-30 20:28] VITALS: BP 146/82; PULSE 77; RESP 16; TEMP 36.7; O2SAT 99; BMI 23.5
[2024-04-30 20:31] VITALS: PULSE 70; RESP 16; O2SAT 99
--- NOTE | 2024-04-30 20:44 | XRR_ITS ---
PROCEDURE INFORMATION: Exam: XR Chest Exam date and time: 04/30/2024 8:54 PM Age: 38 years old Clinical indication: Other: Weakness TECHNIQUE: Imaging protocol: Radiologic exam of the chest. Views: 1 view. COMPARISON: CT abdomen pelvis w con* [id number] 04/18/2024 8:15 PM FINDINGS: Lungs: Unremarkable. No consolidation. Pleural spaces: Unremarkable. No pleural effusion. No pneumothorax. Heart/Mediastinum: Unremarkable. No cardiomegaly. Bones/joints: Unremarkable. XR/XR chest 1V portable [id number] IMPRESSION: No acute findings.
--- NOTE | 2024-04-30 20:49 | ECG_ITS ---
[facility] Test Date: 2024-04-30 Pat Name: Arlyn Waller Department: Room: Gender: Female [employer]: : 1985 Requested By: Abby Tom Order Number: [id number] Nayana MD: Angel Santos M.D. Measurements Intervals [place] Rate: 67 P: 25 GA: 134 QRS: 64 QRSD: 93 T: 64 QT: 388 QTc: 410 Interpretive Statements SINUS RHYTHM INDETERMINATE AXIS INCOMPLETE RIGHT BUNDLE BRANCH BLOCK [90+ ms QRS DURATION, TERMINAL R IN V1/V2, 40+ ms S IN I/aVL/V4/V5/V6] Compared to ECG 04/19/2024 21:25:59 Indeterminate axis now present Incomplete right bundle-branch block now present Electronically Signed On 05-01-2024 8:21:12 CDT by Angel Santos M.D. [email or web address] ([id number]
--- NOTE | 2024-04-30 20:54 | CTR_ITS ---
PROCEDURE INFORMATION: Exam: CT Head Without Contrast Exam date and time: 04/30/2024 8:58 PM Age: 38 years old Clinical indication: Weakness, extremity TECHNIQUE: Imaging protocol: Computed tomography of the head without contrast. Radiation optimization: All CT scans at this facility use at least one of these dose optimization techniques: automated exposure control; mA and/or kV adjustment per patient size (includes targeted exams where dose is matched to clinical indication); or iterative reconstruction. COMPARISON: No relevant prior studies available. RADIATION DOSE METRICS: Total DLP (mGy-cm): 1039 FINDINGS: Brain: Normal. No hemorrhage. Unremarkable white matter. No mass effect. Cerebral ventricles: No ventriculomegaly. Paranasal sinuses: Visualized sinuses are unremarkable. No fluid levels. Mastoid air cells: Visualized mastoid air cells are well aerated. Bones: Unremarkable. No acute fracture. Soft tissues: Unremarkable. CT/CT head wo con* [id number] IMPRESSION: No acute intracranial abnormality.
--- NOTE | 2024-04-30 20:56 | ED_ITS ---
HPI - Weakness 2 General: Chief complaint: Weakness Stated complaint: Weakness, Confused Time Seen by Provider: 04/30/24 20:35 Source: patient Mode of arrival: ambulatory Limitations: no limitations History of Present Illness: 38-year-old female has a history of alco holism along with anemia. Patient states that she is felt very tired and fatigued today and is just felt like sleeping all day. States she had some slight confusion here she is answering all my question appropriately she has no focal deficits denies any headache denies any fever or recent illness denies any vomiting Associated symptoms: Reports confusion; Denies chest pain, chills, fever(s), headache(s), nausea or vomiting Review of Systems 2 Const: Reports: fatigue and malaise; Denies: fever(s), chills, body aches or change in appetite Eyes: Denies: blurry vision or eye discomfort ENMT: Denies: throat pain or dental pain Card: Denies: chest pain Resp: Denies: dyspnea GI: Denies: abdominal pain, nausea, vomiting or diarrhea Musc: Denies: neck pain or back pain Skin/Breast: Denies: rash Neuro: Reports: confusion; Denies: headache(s) PFSH ED 2 PFSH: Medical History History of alcoholism Surgical History History of tubal ligation History of cholecystectomy Social History Smoking and tobacco/nicotine status: never used tobacco/nicotine Alcohol intake: current Substance/Drug Use: never Physical Exam 2 Const: COMMON NORMALS: no acute distress, patient oriented x3 and healthy appearing HENMT: COMMON NORMALS: normocephalic and atraumatic HEAD & SCALP: n ormocephalic and atraumatic Eye: COMMON NORMALS: Equal, round and reactive pupils present and EOMs intact bilaterally PUPIL: Yes Equal, round and reactive pupils present Neck/C-Spine: COMMON NORMALS: full ROM and supple Chest: COMMONS NORMALS: normal inspection of the chest Resp: COMMON NORMALS: normal respiratory effort, No retractions, No use of accessory muscles and clear to auscultation bilaterally AUSCULTATION: clear to auscultation bilaterally Cardio: COMMON NORMALS: regular rate, regular rhythm and No murmurs present (Cardio) RATE: regular rate RHYTHM: regular rhythm GI: COMMON NORMALS: Normal to inspection, nondistended, normoactive bowel sounds present, Soft to palpation, non-tender and no masses PALPATION: Yes Soft to palpation Extremity: COMMON NORMALS: normal to inspection and full ROM Neuro: COMMON NORMALS: patient oriented x3, moves all extremities and no focal motor deficits SPEECH: speech normal MOTOR EXAM: 5/5 motor strength present throughout Psych: COMMON NORMALS: mental status grossly normal, Normal thought process present and cooperative THOUGHT PROCESS: Normal thought process present Skin: COMMON NORMALS: no rashes or lesions noted and no wounds GENERAL SKIN EXAM: no rashes or lesions noted Course 2 Vital Signs: Vital signs: Vital Signs Temperature 98.1 F 04/30/24 20:28 Pulse Rate 77 04/30/24 20:28 Respiratory Rate 16 04/30/24 20:28 Blood Pressure 146/82 04/30/24 20:28 Pulse Oximetry 99 04/30/24 20:28 Oxygen Delivery Me thod Room Air 04/30/24 20:28 MDM - Weakness Medical Decision Making Patient presents here with generalized weakness she was found to have a UTI is likely causing her weakness she is well-appearing here blood work imaging here is otherwise normal she is no signs of a stroke no focal deficits she stable for discharge follow-up with PCP return if worsening. Medical Records I reviewed the patient's medical records. Lab Data I reviewed the patient's lab results. 04/30/24 21:07 04/30/24 21:07 Radiology Impressions Chest X-Ray 04/30/24 20:44 IMPRESSION: No acute findings. Head CT 04/30/24 20:54 IMPRESSION: No acute intracranial abnormality. Laboratory Results WBC 6.19 10^3/uL (3.29-11.43) 04/30/24 21:07 RBC 5.37 10^6/uL (3.85-5.65) 04/30/24 21:07 Hgb 11.70 g/dL (11.27-16.99) 04/30/24 21:07 Hct 42.2 % (36-47) 04/30/24 21:07 MCV 78.6 fl (85-98) L 04/30/24 21:07 MCH 21.8 pg (27-33) L 04/30/24 21:07 MCHC 27.7 g/dL (30-55) L 04/30/24 21:07 RDW 32.3 % (12.1-15.1) H 04/30/24 21:07 Plt Count 213 10^3/cmm (157-399) 04/30/24 21:07 MPV 9.2 fL (7.4-10.4) 04/30/24 21:07 Neut % (Auto) 49.1 % 04/30/24 21:07 Lymph % (Auto) 34.2 % 04/30/24 21:07 Morris % (Auto) 10.8 % 04/30/24 21:07 Eos % (Auto) 4.0 % 04/30/24 21:07 Baso % (Auto) 1.6 % 04/30/24 21:07 Neut # (Auto) 3.03 10^3/uL (1.8-7.7) 04/30/24 21:07 Lymph # (Auto) 2.1 10^3/uL (0.8-4.8) 04/30/24 21:07 Morris # (Auto) 0.7 10^3/uL (0.2-0.9) 04/30/24 21:07 Eos # (Auto) 0.3 10^3/uL (0.0-0.8) 04/30/24 21:07 Baso # (Auto) 0.1 10^3/uL (0.0-0.1) 04/30/24 21:07 Nucleated RBC % (auto) 0 % 04/30/24 21:07 Nucleated RBCs # 0.0 /100WBC 04/30/24 21:07 PT 13.70 SECONDS (12.1-14.9) 04/30/24 21:07 INR 1.01 (0.8-1.2) 04/30/24 21:07 Sodium 139 mmol/L (136-145) 04/30/24 21:07 Potassium 3.9 mmol/L (3.5-5.1) 04/30/24 21:07 Chloride 101 mmol/L (98-107) 04/30/24 21:07 Carbon Dioxide 29 mmol/L (22-29) 04/30/24 21:07 Anion Gap 12.9 (5-19) 04/30/24 21:07 BUN 10 mg/dL (6-20) 04/30/24 21:07 Creatinine 0.7 mg/dL (0.5-0.9) 04/30/24 21:07 GFR Calculation 94.2 mL/min (90-130) 04/30/24 21:07 Glucose 94 mg/dL (65-115) 04/30/24 21:07 Calculated Osmolality 287 mOsm/kg (285-295) 04/30/24 21:07 Calcium 8.9 mg/dL (8.5-10.5) 04/30/24 21:07 Total Bilirubin 0.3 mg/dL (0.15-1.2) 04/30/24 21:07 AST 30 U/L (0-32) 04/30/24 21:07 ALT 18 U/L (0-33) 04/30/24 21:07 Alkaline Phosphatase 71 U/L (35-105) 04/30/24 21:07 Ammonia 25 umol/L (11-51) 04/30/24 21:07 Total Protein 6.8 g/dL (6.6-8.7) 04/30/24 21:07 Albumin 4.2 g/dL (3.5-5.2) 04/30/24 21:07 Globulin 2.6 g/dL (1.3-4.6) 04/30/24 21:07 TSH 0.70 uIU/mL (0.27-4.20) 04/30/24 21:07 HCG, Qual Negative (Negative) 04/30/24 21:07 Urine Color Yellow (Yellow) 04/30/24 21:30 Urine Appearance Turbid (CLEAR) A 04/30/24 21:30 Urine pH 5 (5-7) 04/30/24 21:30 Ur Specific Proctor 1.025 (1.005-1.030) 04/30/24 21:30 Urine Protein 1+ (Negative) H 04/30/24 21:30 Urine Glucose (UA) Norm (Normal) 04/30/24 21:30 Urine Ketones Negative (Negative) 04/30/24 21:30 Urine Blood Neg (Negative) 04/30/24 21:30 Urine Nitrate Positive (Negative) A 04/30/24 21:30 Urine Bilirubin Neg (Negative) 04/30/24 21:30 Urine Urobilinogen Neg mg/dL (Negative) 04/30/24 21:30 Ur Leukocyte Esterase 1+ (Negative) H 04/30/24 21:30 Urine RBC 0-4 /hpf (0-2) H 04/30/24 21:30 Urine WBC 15-25 /hpf (0-5) H 04/30/24 21:30 Ur Squamous Epith Cells 5-10 /hpf (0-5) H 04/30/24 21:30 Amorphous Sediment Not Reportable 04/30/24 21:30 Urine Bacteria 4+ /hpf (NONE) H 04/30/24 21:30 Urine Mucus 2+ /hpf 04/30/24 21:30 Ethyl Alcohol < 10 mg/dL (0-10) 04/30/24 21:07 All radiology interpretation(s) finalized by discharge EKG Data EKG 1: I personally reviewed and interpreted this EKG as follows: EKG interpretation date: 04/30/24 EKG interpretation time: 20:49 Interpretation: nsr hr [address] elevation qrs 93 qtc 403 Discharge Plan Discharge Patient Disposition: Home Clinical Impression: Acute cystitis, Weakness Condition: Stable Prescriptions: New cephalexin 500 mg capsule 500 mg PO TID 7 Days Qty: 21 0RF No Action methocarbamol 500 mg tablet 1,000 mg PO Q8H Qty: 30 0RF Vitamin B-1 (mononitrate) 100 mg Tablet 100 mg PO DAILY 30 Days Qty: 30 1RF mupirocin 2 % ointment 1 applic topical BID Qty: 50 0RF Discharge Orders: Discharge ED (Routine); Ordered 04/30/24 Ordered By: Abby Tom Discharge Diet: Advance as tolerated Discharge Activity: Resume usual activity Patient Instructions: Urinary Tract Infection in Women (ED) Coding Level of Care Code 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
[2024-04-30 21:18] LABS: Basophils # 0.1 10^3/uL (0.0-0.1); Basophils % 1.6 %; Eosinophils # 0.3 10^3/uL (0.0-0.8); Hematocrit 42.2 % (36-47); Lymphocytes # 2.1 10^3/uL (0.8-4.8); Lymphocytes % 34.2 %; Mean Corpuscular HGB Conc 27.7 g/dL (30-55); Mean Corpuscular Hemoglobin 21.8 pg (27-33); Mean Corpuscular Volume 78.6 fl (85-98); Mean Platelet Volume 9.2 fL (7.4-10.4); Monocytes # 0.7 10^3/uL (0.2-0.9); Monocytes % 10.8 %; Neutrophils # 3.03 10^3/uL (1.8-7.7); Neutrophils % 49.1 %; Nucleated Red Blood Cells % 0 %; Platelet Count 213 10^3/cmm (157-399); Red Blood Count 5.37 10^6/uL (3.85-5.65); Red Cell Distribution Width 32.3 % (12.1-15.1); White Blood Count 6.19 10^3/uL (3.29-11.43)
[2024-04-30 21:28] LABS: HCG, Serum Qual Negative (Negative); INR 1.01 (0.8-1.2)
[2024-04-30 21:40] LABS: Ammonia 25 umol/L (11-51)
[2024-04-30 21:50] LABS: Alanine Aminotransferase 18 U/L (0-33); Albumin Level 4.2 g/dL (3.5-5.2); Alkaline Phosphatase 71 U/L (35-105); Anion Gap 12.9 (5-19); Aspartate Amino Transferase 30 U/L (0-32); Blood Urea Nitrogen 10 mg/dL (6-20); Calcium 8.9 mg/dL (8.5-10.5); Carbon Dioxide 29 mmol/L (22-29); Chloride 101 mmol/L (98-107); Creatinine Clr Calc Pharmacy 111.4796; Globulin 2.6 g/dL (1.3-4.6); Glomerular Filtration Rate 94.2 mL/min (90-130); Glucose 94 mg/dL (65-115); Osmolality Calculated 287 mOsm/kg (285-295); Potassium 3.9 mmol/L (3.5-5.1); Sodium 139 mmol/L (136-145); Total Bilirubin 0.3 mg/dL (0.15-1.2); Total Protein 6.8 g/dL (6.6-8.7)
[2024-04-30 21:57] LABS: Alcohol Level < 10 mg/dL (0-10)
[2024-04-30 22:02] LABS: Bilirubin Urine Neg (Negative); Blood Urine Neg (Negative); Glucose Urine UA Norm (Normal); Ketones Urine Negative (Negative); Nitrate Urine Positive (Negative); Protein Urine 1+ (Negative); Specific Gravity, Urine 1.025 (1.005-1.030); Urine Appearance Turbid (CLEAR); Urine Color Yellow (Yellow); pH Urine 5 (5-7)
[2024-04-30 22:03] LABS: Add Urine Culture? Yes; Add Urine Microscopic? YES; Bacteria Urine 4+ /hpf; Leukocyte Esterase Urine 1+ (Negative); Mucus Urine 2+ /hpf; RBC Urine 0-4 /hpf (0-2); Urobilinogen Urine Neg (Negative); WBC Urine 15-25 /hpf (0-5)
[2024-04-30] MEDS: cefTRIAXone 1,000 mg SDV 1000 MG IVP (22:33)
[2024-04-30 22:47] VITALS: BP 109/63; PULSE 60; RESP 16; O2SAT 98
[2024-04-30 22:50] VITALS: BP 109/63; PULSE 60; RESP 16; O2SAT 98
== END 2024-04-30 22:51 | disposition home or self-care (01) ==
PROVIDERS: Emergency Provider Emergency Medicine
DX: N30.00 Acute cystitis without hematuria (principal); R53.1 Weakness
CPT/HCPCS: 36415; 70450; 71045; 80053; 80307; 81001; 82140; 84443; 84703; 85025; 85610; 87086; 93005; 96374; 96375; 99285; J0696; J3411

== ENCOUNTER → 2024-06-05 15:21 | Outpatient (BNVA) | payer BC, MEDICAID, SELFPAY | PROVIDERS: Visit Provider Obstetrics & Gynecology | DX: N93.9 Abnormal uterine and vaginal bleeding, unspecified (principal) | CPT/HCPCS: 83001; 84146; 84443; 84702; 85025 ==

== ENCOUNTER → 2024-06-26 10:22 | Outpatient (BNVA) | payer MEDICAID, SELFPAY | PROVIDERS: Visit Provider Obstetrics & Gynecology | DX: R10.2 Pelvic and perineal pain (principal); G89.29 Other chronic pain; N92.1 Excessive and frequent menstruation with irregular cycle | CPT/HCPCS: 76830 ==